=== PATIENT | male | born 1950 | race Caucasian/White ===

== ENCOUNTER 2017-08-23 14:03 | Emergency (ER) | payer MEDICARE, BC ==
[2017-08-23 14:23] VITALS: BP 99/80
--- NOTE | 2017-08-23 14:52 | UC ---
Shortness of Breath HPI - HPI Summary HPI Summary: Patient is ambulatory to room 4 with chief complaint today of shortness of breath/dyspnea on exertion. Patient also states he feels like his heart is beating irregularly. Patient denies chest pain denies syncope denies nausea denies sweating. - History of Current Complaint Chief Complaint: UCCardiac Stated Complaint: CHEST PAIN Time Seen by Provider: 08/23/17 14:26 Hx Obtained From: Patient Onset/Duration: Sudden Onset, Lasting Hours, Still Present Timing: Constant Current Severity: Moderate Dyspnea At: Rest Aggrevating Factors: Movement Alleviating Factors: Nothing - Allergy/Home Medications Allergies/Adverse Reactions: Allergies Allergy/AdvReac Type Severity Reaction Status Date / Time No Known Allergies Allergy Verified 08/23/17 14:52 PMH/Surg Hx/FS Hx/Imm Hx Previously Healthy: No - DVT RLE Cardiovascular History: Hypertension - Surgical History Surgical History: Unable to Obtain/Confirm - Family History Known Family History: Positive: None - Social History Occupation: Retired Lives: With Family Alcohol Use: None Substance Use Type: None Smoking Status (MU): Never Smoked Tobacco Review of Systems Constitutional: Negative Skin: Negative Eyes: Negative ENT: Negative Respiratory: Shortness Of Breath Cardiovascular: Palpitations Gastrointestinal: Negative Genitourinary: Negative Motor: Negative Neurovascular: Negative Musculoskeletal: Negative Neurological: Negative Psychological: Negative Is Patient Immunocompromised?: No All Other Systems Reviewed And Are Negative: Yes Physical Exam Triage Information Reviewed: Yes Appearance: Well-Appearing, No Pain Distress, Well-Nourished Vital Signs: Initial Vital Signs Temp 96.8 F 08/23/17 14:19 Pulse 25 08/23/17 14:19 Resp 18 08/23/17 14:19 BP 99/80 08/23/17 14:19 Pulse Ox 98 08/23/17 14:19 Vital Signs Reviewed: Yes Eye Exam: Normal Eyes: Positive: Conjunctiva Clear ENT Exam: Normal ENT: Positive: Normal ENT inspection, Hearing grossly normal. Negative: Muffled voice, Hoarse voice, Dental tenderness Dental Exam: Normal Neck exam: Normal - A green a regular heart rate and blood pressure came up to 140 99 is low as low as 60 oral Neck: Positive: Supple, Nontender Respiratory Exam: Normal Respiratory: Positive: Chest non-tender, Lungs clear, No respiratory distress, No accessory muscle use Cardiovascular Exam: Normal Cardiovascular: Positive: Pulses Normal, Brisk Capillary Refill, Bradycardia Musculoskeletal Exam: Normal Musculoskeletal: Positive: Strength Intact, ROM Intact, No Edema Neurological Exam: Normal Neurological: Positive: Alert, Muscle Tone Normal - Again is something that has been nauseated and U being around with continuing her up for A telemetry orders Y Y Psychological Exam: Normal Psychological: Positive: Normal Response To Family, Age Appropriate Behavior, Consolable Skin Exam: Normal Skin: Positive: rashes Diagnostics - EKG Cardiac Rate: Bradycardia Cardiac Rhythm: Sinus: Normal, LBBB: Normal, Other Rhythm: Normal - Second degre type 2 Ectopy: None ST Segment: Normal Re-Evaluation - Re-Evaluation First Eval Change: Unchanged - During assessment patient had 3 full screens of a atrial beats only,. external pacer pads applied but never turned on. After that patient converted back into a sinus rhythm in the 60s at rest patient had no shortness of breath and no chest pain he remained pink warm dry awake alert and oriented Shortness of Breath Dx - Course Course Of Treatment: EMS transferred to [facility] ER, IV 2,3 L O2 by nasal cannula transcutaneous pacemakers on skin on standby, EKG faxed and verbal report to [facility] ER - Differential Dx/Diagnosis Provider Diagnoses: Second degree type II heart block, shortness of breath, palpitations - Physician Notification/Consults Discussed Patient Care With: Chiara Rael Time Discussed With Above Provider: 14:25 Instructed by Provider To: Transfer Discharge - Sign-Out/Discharge Documenting (check all that apply): Discharge - Discharge Plan Condition: Guarded Disposition: TRANS [facility] CARE FAC Referrals: Radha Garcia MD [Primary Care Provider] - - Billing Disposition and Condition Condition: GUARDED Disposition: EMTALA
== END 2017-08-23 14:35 | disposition short-term general hospital (02) ==
LOC: UCEAST 14:03
DX: I44.1 Atrioventricular block, second degree (principal); R06.02 Shortness of breath; R00.2 Palpitations; I10 Essential (primary) hypertension; Z86.718 Personal history of other venous thrombosis and embolism
CPT/HCPCS: 99215; G0463

== ENCOUNTER 2017-08-23 14:44 | Inpatient (IN) | payer MEDICARE, BC ==
[2017-08-23] MEDS ORDERED: Dicyclomine CAP* 10 MG PO ONE (15:00)
[2017-08-23] MEDS ORDERED: Ondansetron INJ* 2 MG/ML VIAL IV ONE (15:00)
[2017-08-23 15:06] LABS: ABS Basophils 0 10^3/ul (0-0.2); ABS Eosinophils 0.1 10^3/ul (0-0.6); ABS Lymphocytes 2.1 10^3/ul (1.0-4.8); ABS Monocytes 0.5 10^3/ul (0-0.8); ABS Nucleated RBC 0 10^3/ul; Eosinophil % 2.6 % (0-6); Hematocrit 46 % (42-52); Hemoglobin 15.7 g/dl (14.0-18.0); Lymphocyte % 35.9 % (25-47); Mean Corpuscular HGB Conc 34 g/dl (31-36); Mean Corpuscular Hemoglobin 32 pg (27-31); Mean Corpuscular Volume 93 fL (80-94); Mean Platelet Volume 8.3 um3 (7.4-10.4); Nucleated Red Blood Cells % 0.1; Platelet Count 209 10^3/ul (150-450); Red Blood Count 4.97 10^6/ul (4.0-5.4); Red Cell Distribution Width 13 % (10.5-15); White Blood Count 5.7 10^3/ul (3.5-10.8)
[2017-08-23 15:22] LABS: EGFR Non-African American 60.2 (>60)
--- NOTE | 2017-08-23 15:43 | RAD ---
INDICATION: Heart block. COMPARISON: There are no prior studies available for comparison. TECHNIQUE: A portable view of the chest was obtained. FINDINGS: Cardiac and mediastinal contours appear to be within normal limits. There is a small area of increased density which projects over the left midlung likely due to overlapping shadows although nonspecific. The lungs are otherwise clear. No pleural effusion is seen. IMPRESSION: THERE IS A SMALL AREA OF INCREASED DENSITY WHICH PROJECTS OVER THE LEFT MID LUNG LIKELY DUE TO OVERLAPPING SHADOWS ALTHOUGH NONSPECIFIC. RECOMMEND PA AND LATERAL CHEST FILMS FOR FURTHER EVALUATION.
[2017-08-23 16:21] LABS: Urine Appearance Clear; Urine Blood 2+ (Negative); Urine Color Straw; Urine Ketones Negative (Negative); Urine Protein 1+(30 mg/dL) (Negative); Urine Specific Gravity 1.008 (1.010-1.030); Urine Urobilinogen Negative (Negative)
[2017-08-23] MEDS ORDERED: Acetaminophen TAB* 325 MG PO PRN (17:00)
[2017-08-23] MEDS ORDERED: LORazepam INJ* 2 MG/ML 1 ML VIAL ONE (17:13)
[2017-08-23] MEDS ORDERED: Morphine INJ* 2 MG/ML 1 ML CARPUJECT ONE (17:14)
[2017-08-23] MEDS ORDERED: Morphine INJ* 2 MG/ML 1 ML CARPUJECT IV ONE (17:15)
[2017-08-23] MEDS ORDERED: LORazepam INJ* 2 MG/ML 1 ML VIAL IV PUSH ONE (17:16)
[2017-08-23] MEDS ORDERED: Atropine SYRINGE* 0.1 MG/ML 10 ML SYRINGE (1 MG) ONE (17:26)
[2017-08-23] MEDS: cefTRIAXone(*) 2 GM in NS 0.9% 100 ML* 100 ML IVPB SCH (18:11)
[2017-08-23] MEDS ORDERED: Magnesium Sulfate 2 GM IV* 2 GM/50 ML BAG IVPB ONE (18:11)
[2017-08-23] MEDS ORDERED: Heparin 2 UNITS/ML IVPREMIX* 1,000 ML IV ONE (19:13)
[2017-08-23] MEDS ORDERED: Lidocaine 1% INJ* 10 MG/ML 30 ML SDV ONE (19:13)
--- NOTE | 2017-08-23 21:02 | HP ---
CC: Dr. Carroll; Dr. Apodaca; Dr. Muller * HISTORY AND PHYSICAL: DATE OF ADMISSION: 08/23/17 PRIMARY CARE PROVIDER: Dr. Carroll. MY ATTENDING PHYSICIAN WHILE IN THE HOSPITAL: Dr. Sydni Simon * (report dictated by Luis Manuel Rodriguez NP). CONSULTING GRASSLAND CONSERVATIONIST: Dr. Apodaca. CHIEF COMPLAINT: Bradycardia. HISTORY OF PRESENT ILLNESS: Mr. Shah is a 66-year-old male patient. He has a history of hypertension and kidney stones. He has had a question of DVT in the past related to after having a trauma. He fell of a scaffolding about 3 years ago. In addition to this, he also had a prolonged period prior to this of kneeling while gardening, ended up being on Lovenox bridged with Coumadin. He has a history of varicose veins in the left leg and he has a history of skin cancer; he thinks it was basal cell. He comes in to the ED today. He says he noticed yesterday, he was going up pushing a wheelbarrow up the hill, which he does pretty routinely because he is building a house and he only goes 800 feet and he does this without getting short of breath or any discomfort with breathing, but yesterday he felt very winded, and very tired, he felt like he could not do and he was having dyspnea on exertion, which he never experienced before. He woke up this morning and he noticed basically this afternoon that he was having again dyspnea on exertion. He tried walking down his sommers back and forth a couple of times and he got winded and he noticed that his heart was very slow, it would beat and then it would be quite some time before he feel another beat, and he felt that this was palpitation. He had no chest pressure, heaviness, discomfort, no pain, no burning, or epigastric discomfort. He says that he was concerned because of this and went to urgent care because it was convenient for him and close and they did one EKG and he was noted to be in a 4: 1 AV block and they sent him to the hospital. He had no episodes of fainting that he is aware of. He came in to the ED, was evaluated. He actually remained in the sinus rhythm with a right bundle branch block. While in the ER , just before transport, he went back into the rhythm again and actually had 2 episodes of syncope and at that point, a temporary pacemaker was initiated and ABC alert was called, but he had passed out for a second, and unfortunately CPR was initiated, but again he will need to require one compression and there was no quality strip of his during his syncopal episode, we have one where it looks like he is just in a complete heart block. He came back and Dr. Apodaca was emergently notified and Dr. Apodaca is coming in to place a transvenous pacer. He does state that he has been outside quite a lot, he has not noticed any tick bites, he has not noticed any rashes, but there is obviously concern because of the episodes of the bradycardia and the syncope, and we were asked to evaluate for admission. He denies any fevers, chills. No nausea or vomiting. No changes in medications. The only thing he takes is hydrochlorothiazide. PAST MEDICAL HISTORY: Significant for: 1. Hypertension. 2. Nephrolithiasis. 3. Question history of DVT. 4. Varicose veins. 5. History of skin cancer. PAST SURGICAL HISTORY: He has had lithotripsy and cystoscopy in the past. HOME MEDICATIONS: Include: 1. Aspirin 81 mg daily. 2. Hydrochlorothiazide 12.5 mg p.o. daily. ALLERGY TO MEDICATIONS: Include no known drug allergies. FAMILY HISTORY: His mother had an FL at 86. Father had history of cancer. SOCIAL HISTORY: He rarely drinks alcohol. He does not smoke. Denies any recreational drug use. He did smoke marijuana when he was in college. Surrogate decision maker is his , Renee. REVIEW OF SYSTEMS: There is no documented fever. He denied having any significant weight change. There was no double vision. He denies having any ear discharge. He denied having any rhinorrhea. There is no sore throat. No thyroid enlargement. He denied any chest pain. There is dyspnea on exertion. There is no abdominal pain. There was no nausea, no vomiting. No dysuria, no frequency. No seizure. There is loss of consciousness today while in the ER, but none prior and no seizure- like activity. Review of 14 systems was completed, all others are negative. PHYSICAL EXAMINATION GENERAL: At this time, Mr. Shah is a 66-year-old male patient. He appears to be well-nourished, well-developed. He does not appear to be in any acute distress. VITAL SIGNS: Blood pressure now 131/69, pulse 61, respirations were 12, O2 sat 99%, temperature 98.3. HEENT: Head: Atraumatic, normocephalic. Eyes: EOMs intact. Sclerae anicteric and not pale. Throat: Oral mucosa appears to be moist. No oropharyngeal erythema. NECK: Supple. LUNGS: Clear to auscultation. He had no wheezes, rales, or rhonchi. HEART: Sounds S1, S2. When I initially evaluated him, he was regular rate and rhythm and in normal sinus rhythm with a right bundle branch block. No murmurs , rubs, or gallops. ABDOMEN: Soft. It was flat, nontender. Bowel sounds are present. EXTREMITIES: Pulses were 2+ throughout. He is moving all 4 extremities with 5/ 5 strength. NEUROLOGICAL: He is awake, he is alert he is oriented x3. His tongue is midline. His curator of collections were equal. He had no gross focal deficits. SKIN: Intact. DIAGNOSTIC STUDIES/LAB DATA: Labs today, WBC of 5.7, RBC of 4.97, hemoglobin 15.7, hematocrit of 46, platelet count of 209. His PTT of 30.7. Sodium 137, potassium 2.9, chloride 98, bicarb 32, BUN 20, creatinine 1.20, glucose 157, lactate 1.7, calcium 9.2, mag 1.9. Total bili 0.9, AST 45, ALT 36, alk phos 58. His TSH was 2.6. His troponin was 0.01, repeat troponin is pending at this point. His CK was 89, CK-MB 2.5. Initial EKG at Urgent Care showed a 4:1 AV block. Repeat EKG when he arrived in to the emergency department shows sinus rhythm, rate of 65 with a right bundle branch block. There are no previous EKGs for comparison and when one he had a syncope episode, all I have is a tele-strip here which all it shows is P waves. It looks like a complete heart block with no QRS complexes prior to the syncopal episode. He did have a chest x-ray obtained today, which showed there is a small area of increased density, which projects over the left mid lung likely due to overlapping shadows, although nonspecific. I recommended PA and lateral films for further evaluation. Old medical records were reviewed. ASSESSMENT AND PLAN: Mr. Shah is a 66-year-old male patient coming in to the emergency department today with complaints again of palpitations, dyspnea on exertion, and not feeling well. He presents to the ER, was found to have 4:1 degree atrioventricular block and we were asked to evaluate for admission. He will be admitted under inpatient status for: 1. Atrioventricular block. Again, at this point, he has had a syncopal episode in the ED, ABC alert was called and after one compression, he did come back and was noted to be in the 4:1 atrioventricular block again. He was started on temporary pacing. Dr. Apodaca was emergently contacted again, saw him initially, Dr. Apodaca with the plan for him to see him tomorrow, but now a transvenous pacemaker is being placed. Lyme serology is pending. I am going to give him empirically Rocephin given his history of being outside. His electrolytes look stable. TSH is stable. He may need a permanent pacemaker. Cardiology is evaluating. We are cycling his troponins and I did order an echo for tomorrow. 2. Hypertension. At this point, I am holding on the hydrochlorothiazide. His blood pressure here is 124/79, it has been pretty stable. We can always restart this if needed, but in acute illness with this and him becoming hypotensive, having syncope, I am going to hold it. 3. History of deep venous thrombosis. He has been placed on heparin subcu. 4. History of nephrolithiasis. Not an active issue. 5. DVT prophylaxis. Again high risk, he will be placed on heparin subcu. 6. Code status. Full code. 7. Fluids, electrolytes, and nutrition. He can have a heart-healthy diet after the transvenous pacemaker is placed. TIME SPENT: On the admission was approximately 70 minutes of critical care time , greater than half the time was spent [id number] with the patient obtaining my history and physical, other half of the time was spent going over the plan of care with the patient and implementing the plan of care. I did discuss the plan of care with my attending, Dr. Simon; she is in agreement. I also did touch base with Dr. Muller. LUIS MANUEL RODRIGUEZ, LOOPER OPERATOR [id number]/[facility] [place]: [id number] [place]
--- NOTE | 2017-08-23 22:15 | CONS ---
CC: Dr. Carroll CARDIOLOGY CONSULTATION: DATE OF CONSULT: 08/23/17. REFERRING PHYSICIAN: Dr. Sydni Simon. REASON FOR CARDIOLOGY CONSULTATION: High-grade AV block with syncope. HISTORY OF PRESENT ILLNESS: I was kindly asked to see this patient for cardiology consultation by Dr. Simon of the hospitalist medicine service and Dr. Kumar of the emergency medicine service of [facility]. The patient apparently had some dyspnea on exertion yesterday while pushing a wheelbarrow. He did not feel well. He also noted some palpitations today and it is not clear if he truly had syncope or not as he noted his nose was sore while he was working on his computer and wonders if "I face planted?" In any case, he came to the [facility] and was found to have transient high-grade AV block with 4:1 block with ventricular escape rate of 23 beats per minute, which spontaneously resolved. He came to [facility] Emergency Room and his initial EKG here showed sinus rhythm at 65 beats per minute with baseline cardiac conduction disease with the right bundle- branch block and a left anterior fascicular block. While in the emergency room , the patient then had a 9-second high-grade AV block of essentially ventricular asystole with only non-conductive P-waves and he did have witnessed syncope with that and then spontaneous resolution. The patient himself denies chest pain. He has had some shortness of breath recently. He interestingly enough did not have symptoms during his EKG showing high-grade AV block at urgent care, but he was supine at that time. PAST MEDICAL HISTORY: Includes: 1. Medullary kidney disease, with calcium oxalate stones. 2. Hypertension. OUTPATIENT MEDICATIONS: 1. Hydrochlorothiazide 12.5 mg once a day. 2. Enteric-coated aspirin 81 mg per day. ALLERGIES TO MEDICATIONS: None. He denies shrimp, sea food, or dye allergy. FAMILY HISTORY: He states his mother from massive heart attack at the age of 86. His older brother of colon cancer. No family history of diabetes nor stroke. SOCIAL HISTORY: He does not smoke cigarettes, abuse alcohol, nor uses drugs. He is for 50 years (and his is present with him during this cardiology consultation). 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 He is very active with gardening and he is building his house. REVIEW OF SYSTEMS: He denies personal history of stroke, TIA. He has had skin cancer removed from his face. He has had a history of hemorrhoidal bleeding, but otherwise denies vomiting blood, coughing of blood, or bleeding stomach ulcers. He has a history of kidney stones related to his medullary kidney. He denies asthma, emphysema, pneumonia, tuberculosis, diagnosed sleep apnea nor home oxygen use. The patient's does note that the patient apparently does stop breathing for up to 10 seconds while sleeping. He denies diabetes. He does have hypertension. He denies prior OK, congestive heart failure, cardiac surgery, cardiac murmurs. He did have palpitations earlier today, but not prior. He denies psychiatric illnesses. He denies lupus, psoriasis, seizures, Parkinson's disease, myasthenia gravis, thyroid disorders, liver disorders, kidney disorders. He has had a prior DVT in 2013 requiring Coumadin, which occurred after he had fallen off of scaffolding and apparently had his leg bent under him for 8 hours while gardening. He denies peripheral edema. He has occasional GERD if he eats "specific pizza." All other review of systems are negative x14 systems except as described above. PHYSICAL EXAM: On general exam, he is a pleasant gentleman, who appears younger than his stated age, athletic appearing, in no acute distress. Pulse is currently 55 when he is not having high-grade AV block, blood pressure 123/74 , temperature 98.3 degrees Fahrenheit. HEENT: Shows the cranium is normocephalic, and atraumatic. He has moist mucosal membranes. Neck veins are not distended. There are no carotid bruits. Visible skin warm and perfused. Affect appropriate. He appears oriented. No significant kyphoscoliosis on back exam. Lungs are clear to auscultation. No wheezes. No rales. Cardiac Exam: S1, S2. Regular rate. No significant murmurs, rubs, or gallops. PMI is nondisplaced. Abdomen is soft, nondistended, appears benign. Extremities: Without significant edema. Pulses appear grossly intact. DIAGNOSTIC STUDIES/LAB DATA: A 12-lead EKG reviewed from urgent care today at 1404, which shows 4:1 AV block with a ventricular escape response of 23 beats per minute. There does appear to be some conduction from the P to QRS, when it does occur, so I pause on calling this third-degree AV block. Followup EKG completed today at 1453 at [facility] shows sinus rhythm at 65 beats per minute with a right bundle-branch block and left anterior fascicular block. Telemetry strip from our ER shows 9 seconds of non-conducted P waves with ventricular asystole White blood cell count 5.7, hematocrit 46, platelet count 209. Sodium 137, potassium 3.9, chloride 98, bicarb 32, BUN 20, creatinine 1.20 and his creatinine had been 1 on 03/09/13. Lactic acid 1.7. AST 45, ALT 36. Troponin 0.01, BNP 85. Followup troponin 0.02. TSH 2.60. IMPRESSION: Mr. Shah is a pleasant 66-year-old gentleman with a history of hypertension with baseline cardiac conduction disease, i.e., right bundle- branch block, and left anterior fascicular block of uncertain duration (the patient does not recall his last EKG), who has had symptomatic high-grade AV block here. I have discussed this in detail with patient and his . I am making the following recommendations with which the patient is in agreement. RECOMMENDATIONS: 1. Given his significant gardening history that does raise the question of Lyme carditis, so we will rule that out. 2. Given that he is having accelerating episodes of symptomatic high-grade AV block, we will place a temporary pacer wire tonight. If Lyme carditis is ruled out, then plan for permanent pacemaker especially given the patient's baseline cardiac conduction disease likely related to his history of hypertension. 3. We recommend repletion of K greater 4, magnesium greater than 2. 4. I would recommend rule out obstructive sleep apnea as an outpatient given suggestive history. 5. Regarding his shortness of breath which may have been related to his high grade AV block, would exclude CAD with ischemic evaluation as an outpatient.We will check a baseline echocardiogram while he is hospitalized. 6. Other management as per the Hospitalist Medicine service and I have discussed the case with Dr. Neslon and Mr. Rodriguez, PACKING AND WRAPPING SUPERVISOR of . Dear Dr. Sydni Simon, many thanks for asking me to participate in the cardiovascular consultative care of Mr. Shah. Please do not hesitate to contact me if you have any questions or concerns regarding the patient's cardiovascular consultative care. [id number]/[facility] #: [id number] [facility] HOSPITALJames
[2017-08-23] MEDS: Heparin VIAL(*) 5000 UNITS/ML VIAL (FIVE THOUSAND) SUBCUT SCH (22:21)
--- NOTE | 2017-08-24 01:40 | CATH ---
CC: Dr. Carroll; Dr. Apodaca PROCEDURE NOTE: DATE OF PROCEDURE: 08/23/17 PRIMARY CARE PHYSICIAN: Dr. Carroll. ORCHARD WORKER: Dr. Apodaca. PROCEDURE: Temporary pacemaker placement. HISTORY: A 66-year-old male with bifascicular block admitted with recurring lightheadedness and witnessed syncope with a prolonged episode of AV block. Temporary pacemaker is required pending permanent pacemaker implantation. PROCEDURE ACCESS: Right common femoral vein sheath 5F. A bipolar 5-Polish pacing wire was positioned in the RV apex using fluoroscopy. Threshold was less than 0.5 MA, it was set at 5 MA, demand, rate of 50. There were no complications. Sheath and pacing wire were secured. The patient was transferred back to the ICU. There were no complications. [id number]/[facility] #: [id number] MTDD
[2017-08-24] MEDS: Heparin VIAL(*) 5000 UNITS/ML VIAL (FIVE THOUSAND) SUBCUT SCH ×3 (06:20→22:15)
[2017-08-24 06:48] LABS: INR 0.93 (0.77-1.02)
[2017-08-24 06:58] LABS: ABS Basophils 0 10^3/ul (0-0.2); ABS Eosinophils 0.1 10^3/ul (0-0.6); ABS Lymphocytes 1.2 10^3/ul (1.0-4.8); ABS Monocytes 0.5 10^3/ul (0-0.8); ABS Neutrophils 4.6 10^3/ul (1.5-7.7); ABS Nucleated RBC 0 10^3/ul; EGFR Non-African American 66.6 (>60); Eosinophil % 1.5 % (0-6); Hematocrit 42 % (42-52); Hemoglobin 14.5 g/dl (14.0-18.0); Lymphocyte % 18.7 % (25-47); Mean Corpuscular HGB Conc 35 g/dl (31-36); Mean Corpuscular Hemoglobin 32 pg (27-31); Mean Corpuscular Volume 92 fL (80-94); Mean Platelet Volume 8.6 um3 (7.4-10.4); Nucleated Red Blood Cells % 0.1; Platelet Count 178 10^3/ul (150-450); Red Blood Count 4.58 10^6/ul (4.0-5.4); Red Cell Distribution Width 13 % (10.5-15); White Blood Count 6.3 10^3/ul (3.5-10.8)
[2017-08-24] MEDS: Aspirin EC TAB* 81 MG TAB.EC PO SCH (09:11)
--- NOTE | 2017-08-24 09:46 | PN ---
Subjective Date of Service: 08/24/17 Interval History: Pt feels well. Temporary pacer spikes sen on telem from time to time. No CP/SOB Objective Active Medications: Acetaminophen (Tylenol Tab*) 650 mg PO Q4H PRN PRN Reason: FEVER/PAIN Aspirin (Aspirin Ec Tab*) 81 mg PO DAILY [facility] Last Admin: 08/24/17 09:11 Dose: 81 mg Heparin Sodium (Porcine) (Heparin Vial(*)) 5,000 units SUBCUT Q8HR [facility] Last Admin: 08/24/17 06:20 Dose: 5,000 units Ceftriaxone Sodium 2 gm/ (Sodium Chloride) 100 mls @ 200 mls/hr IVPB Q24H [facility] Last Admin: 08/23/17 18:11 Dose: 200 mls/hr Vital Signs - 8 hr 08/24/17 08/24/17 08/24/17 02:00 02:03 03:00 Temperature Pulse Rate 55 50 50 Respiratory 15 16 14 Rate Blood Pressure 79/64 128/63 93/77 (mmHg) O2 Sat by Pulse 97 97 97 Oximetry 08/24/17 08/24/17 08/24/17 04:00 04:01 05:00 Temperature 99.2 F 99.3 F Pulse Rate 50 50 51 Respiratory 10 9 13 Rate Blood Pressure 82/68 (mmHg) O2 Sat by Pulse 98 97 95 Oximetry 08/24/17 08/24/17 08/24/17 05:01 06:00 06:01 Temperature Pulse Rate 51 50 50 Respiratory 13 12 8 Rate Blood Pressure 112/62 111/66 (mmHg) O2 Sat by Pulse 97 98 95 Oximetry 08/24/17 08/24/17 08/24/17 07:00 07:23 07:27 Temperature 98.3 F Pulse Rate 52 Respiratory 13 14 Rate Blood Pressure 112/70 (mmHg) O2 Sat by Pulse 99 Oximetry 08/24/17 08/24/17 08/24/17 08:00 08:01 09:00 Temperature 98.3 F Pulse Rate 56 56 61 Respiratory 22 10 21 Rate Blood Pressure 132/71 (mmHg) O2 Sat by Pulse 98 99 99 Oximetry 08/24/17 09:01 Temperature Pulse Rate 61 Respiratory 18 Rate Blood Pressure 116/71 (mmHg) O2 Sat by Pulse 98 Oximetry Oxygen Devices in Use Now: None Appearance: 66 yo M in nAD, aAOx3 Eyes: No Scleral Icterus, PERRLA Ears/Nose/Mouth/Throat: NL Teeth, Lips, Gums, Mucous Membranes Moist Neck: NL Appearance and Movements; NL JVP, Trachea Midline Respiratory: Symmetrical Chest Expansion and Respiratory Effort, Clear to Auscultation Cardiovascular: NL Sounds; No Murmurs; No JVD, RRR Abdominal: NL Sounds; No Tenderness; No Distention, No Hepatosplenomegaly Lymphatic: No Cervical Adenopathy Extremities: No Edema, No Clubbing, Cyanosis, - - temp pacer site in R groin - no hematoma noted Skin: No Rash or Ulcers, No Nodules or Sclerosis Neurological: Alert and Oriented x 3, NL Muscle Strength and Tone Result Diagrams: 08/24/17 06:20 08/24/17 06:20 Microbiology and Other Data: Microbiology 08/23/17 17:45 Nasal Screen MRSA (PCR)(IRA) - Final Nasal Mrsa Not Detected Assess/Plan/Problems-Billing Assessment: 66 yo M with h/o HTN presents with SSS - Patient Problems (1) Sick sinus syndrome Comment: Pt is planned for permament pacer in AM on Friday.For now continue temp pacer in ICU. due to high suspicion of Lyme carditis, will continue empiric Cefriaxone. Lyme serology pending (2) HTN (hypertension) Comment: normotensive, HCTZ held (3) DVT prophylaxis Comment: HSQ-holding tonight for possible pacer in aM
[2017-08-24] MEDS ORDERED: Potassium Chlor TAB* 20 MEQ TAB.ER PO ONE (10:03)
--- NOTE | 2017-08-24 11:51 | ECHO ---
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 Completed at 1130. Left Ventricle: The left ventricular chamber size is normal. Mild concentric left ventricular hypertrophy is observed. Global left ventricular wall motion and contractility are within normal limits. There is normal left ventricular systolic function. The estimated ejection fraction is 55-60%. Normal left ventricular diastolic filling is observed. Left Atrium: The left atrial chamber size is normal. Right Ventricle: The right ventricular chamber size and systolic function are within normal limits. A pacemaker wire is visualized in the right ventricle. Right Atrium: The right atrium is mildly dilated. Aortic Valve: The aortic valve is trileaflet. The aortic valve leaflets are mildly thickened. There is no evidence of aortic regurgitation. There is no evidence of aortic stenosis. Mitral Valve: The mitral valve leaflets are mildly thickened. There is a trace of mitral regurgitation. Tricuspid Valve: The tricuspid valve leaflets are normal. There is trace tricuspid regurgitation. No pulmonary hypertension is noted. Pulmonic Valve: The pulmonic valve appears normal. There is a trace pulmonic regurgitation. There is no pulmonic stenosis. Pericardium: There is no significant pericardial effusion. Aorta: There is mild dilatation of the ascending aorta. There is no dilatation of the aortic arch. There is no dilation of the aortic root. Pulmonary Artery: The main pulmonary artery is not well visualized. Venous: The inferior vena cava appears normal in size. There is a greater than 50% respiratory change in the inferior vena cava dimension. Conclusions There is normal left ventricular systolic function. The estimated ejection fraction is 55-60%. Global left ventricular wall motion and contractility are within normal limits. Mild concentric left ventricular hypertrophy is observed. The left ventricular chamber size is normal. The right atrium is mildly dilated. Functionally benign heart valves. There is mild dilatation of the ascending aorta. There is no prior echocardiogram available to compare with at this time. Measurements Name Value Normal Range RVDdMajor (2D) 2.8 cm (2.2 - 4.4) RAd ISD 4CH 5.1 cm (3.4 - 4.9) RA (A4C)W 3.5 cm (2.9 - 4.6) IVSd (2D) 1.3 cm (0.6 - 1) LVPWd (2D) 1.2 cm (0.6 - 1) LVIDd (2D) 4.2 cm (3.6 - 5.4) LVIDs (2D) 2.7 cm - LV FS (2D) 36 % (25 - 45) Aortic Annulus 2 cm (1.4 - 2.6) Ao root diameter (2D) 3.2 cm (2.1 - 3.5) Ascending Ao 3.7 cm (2.1 - 3.4) Aortic arch 2.7 cm (1.8 - 3.4) LA dimension (AP) 2D 3.3 cm (2.3 - 3.8) LAd ISD 4CH 5.1 cm (2.9 - 5.3) LA ISD 4CH W 4.3 cm (2.5 - 4.5) Name Value Normal Range LA ESV SP 4CH (A/L) 67 ml - LA ESV SP 2CH (A/L) 27 ml - LA ESV BP (A/L) 45 ml - LA ESV BP (A/L) index 22.7 ml/m2 - LA ESV SP 4CH (MOD) 64 ml - LA ESV SP 2CH (MOD) 26 ml - Name Value Normal Range MV E-wave Vmax 0.9 m/sec - MV deceleration time 233 msec - MV A-wave Vmax 0.78 m/sec - MV E:A ratio 1.1 ratio - LV septal e' Vmax 0.1 m/sec - LV lateral e' Vmax 0.09 m/sec - LV E:e' septal ratio 9 ratio - LV E:e' lateral ratio 10 ratio - Name Value Normal Range AV Vmax 1.5 m/sec - AV VTI 34.9 cm - AV peak gradient 8.9 mmHg - AV mean gradient 5.3 mmHg - LVOT Vmax 1.3 m/sec - LVOT VTI 28.2 cm - LVOT peak gradient 6.5 mmHg - LVOT mean gradient 3.6 mmHg - MILENA Vmax 0.68 m/sec - Name Value Normal Range TR Vmax 2.4 m/sec - TR peak gradient 23 mmHg - RAP 3 mmHg - RVSP 26 mmHg - IVC diameter 1.5 cm - Name Value Normal Range PV Vmax 0.87 m/sec -
[2017-08-24] MEDS: cefTRIAXone(*) 2 GM in NS 0.9% 100 ML* 100 ML IVPB SCH (18:29)
[2017-08-25 06:38] LABS: ABS Basophils 0 10^3/ul (0-0.2); ABS Eosinophils 0.2 10^3/ul (0-0.6); ABS Lymphocytes 1.5 10^3/ul (1.0-4.8); ABS Monocytes 0.4 10^3/ul (0-0.8); ABS Neutrophils 2.9 10^3/ul (1.5-7.7); ABS Nucleated RBC 0 10^3/ul; Eosinophil % 3.1 % (0-6); Hematocrit 41 % (42-52); Hemoglobin 14.1 g/dl (14.0-18.0); Lymphocyte % 30.3 % (25-47); Mean Corpuscular HGB Conc 34 g/dl (31-36); Mean Corpuscular Hemoglobin 32 pg (27-31); Mean Corpuscular Volume 92 fL (80-94); Mean Platelet Volume 8.2 um3 (7.4-10.4); Nucleated Red Blood Cells % 0; Platelet Count 161 10^3/ul (150-450); Red Blood Count 4.47 10^6/ul (4.0-5.4); Red Cell Distribution Width 13 % (10.5-15)
[2017-08-25 06:54] LABS: EGFR Non-African American 70.2 (>60)
--- NOTE | 2017-08-25 07:55 | PN ---
Subjective Date of Service: 08/25/17 Interval History: No c/o. Objective Active Medications: Acetaminophen (Tylenol Tab*) 650 mg PO Q4H PRN PRN Reason: FEVER/PAIN Aspirin (Aspirin Ec Tab*) 81 mg PO DAILY [facility] Last Admin: 08/24/17 09:11 Dose: 81 mg Ceftriaxone Sodium 2 gm/ (Sodium Chloride) 100 mls @ 200 mls/hr IVPB Q24H [facility] Last Admin: 08/24/17 18:29 Dose: 200 mls/hr Vital Signs - 8 hr 08/25/17 08/25/17 08/25/17 00:00 00:01 01:00 Temperature 98.4 F 98.3 F Pulse Rate 56 51 52 Respiratory 18 15 14 Rate Blood Pressure 124/67 117/68 (mmHg) O2 Sat by Pulse 97 96 96 Oximetry 08/25/17 08/25/17 08/25/17 01:01 02:00 02:01 Temperature Pulse Rate 57 53 52 Respiratory 26 11 9 Rate Blood Pressure 114/64 (mmHg) O2 Sat by Pulse 96 97 96 Oximetry 08/25/17 08/25/17 08/25/17 03:00 03:01 04:00 Temperature 98.4 F Pulse Rate 51 52 53 Respiratory 16 12 14 Rate Blood Pressure 119/72 123/67 (mmHg) O2 Sat by Pulse 96 96 95 Oximetry 08/25/17 08/25/17 08/25/17 04:01 05:00 06:00 Temperature Pulse Rate 51 53 51 Respiratory 12 15 9 Rate Blood Pressure 92/57 108/69 (mmHg) O2 Sat by Pulse 95 97 96 Oximetry 08/25/17 08/25/17 06:01 07:40 Temperature 98.7 F Pulse Rate 51 Respiratory 8 Rate Blood Pressure (mmHg) O2 Sat by Pulse 95 Oximetry Oxygen Devices in Use Now: None Appearance: Alert, partly up in ICU bed. In good spirits, looks comfortable Eyes: No Scleral Icterus Respiratory: Symmetrical Chest Expansion and Respiratory Effort, Clear to Auscultation, Clear to Percussion Cardiovascular: NL Sounds; No Murmurs; No JVD, RRR, No Edema, - Skin: No Rash or Ulcers, No Nodules or Sclerosis, - Result Diagrams: 08/25/17 06:17 08/25/17 06:17 Microbiology and Other Data: Microbiology 04/07/18 17:45 Nasal Screen MRSA (PCR)(IRA) - Final Nasal Mrsa Not Detected Assess/Plan/Problems-Billing Assessment: 66 yo M with h/o HTN presents with SSS - Patient Problems (1) Heart block Current Visit: Yes Status: Acute Code(s): I45.9 - CONDUCTION DISORDER, UNSPECIFIED SNOMED Code(s): 853606565 Comment: Temporary pacer in place, set at 50. TSH wnl. Lyme serology pending. Discussed with Dr. Moctezuma. (2) HTN (hypertension) Current Visit: Yes Status: Acute Code(s): I10 - ESSENTIAL (PRIMARY) HYPERTENSION SNOMED Code(s): 72600248 Comment: normotensive, HCTZ held (3) DVT prophylaxis Current Visit: Yes Status: Acute Code(s): BRP3497 - SNOMED Code(s): 041552472 Comment: HSQ-holding tonight for possible pacer.
[2017-08-25] MEDS: Aspirin EC TAB* 81 MG TAB.EC PO SCH (08:52)
[2017-08-25 11:23] LABS: ABS Basophils 0 10^3/ul (0-0.2); ABS Eosinophils 0.1 10^3/ul (0-0.6); ABS Lymphocytes 1.1 10^3/ul (1.0-4.8); ABS Monocytes 0.3 10^3/ul (0-0.8); ABS Nucleated RBC 0 10^3/ul; Eosinophil % 2.3 % (0-6); Hematocrit 43 % (42-52); Hemoglobin 14.7 g/dl (14.0-18.0); Lymphocyte % 23.5 % (25-47); Mean Corpuscular HGB Conc 34 g/dl (31-36); Mean Corpuscular Hemoglobin 32 pg (27-31); Mean Corpuscular Volume 92 fL (80-94); Mean Platelet Volume 8.3 um3 (7.4-10.4); Nucleated Red Blood Cells % 0.1; Platelet Count 170 10^3/ul (150-450); Red Blood Count 4.66 10^6/ul (4.0-5.4); Red Cell Distribution Width 13 % (10.5-15); White Blood Count 4.6 10^3/ul (3.5-10.8)
[2017-08-25 11:47] LABS: INR 0.93 (0.77-1.02)
--- NOTE | 2017-08-25 12:52 | ED ---
Ravinder Cordova Stephanie, scribed for Heron Kumar MD on 08/23/17 at 1507 . Shortness of Breath - HPI Summary HPI Summary: The patient is a 66 y/o M presenting to the ED with c/o SOB that began today at 12:00. Symptoms include palpitations and lightheadedness. He denies CP and denies current SOB. The patient states he was at rest when he began to experience SOB. The patient states this morning he noticed he had an irregular heartbeat. The patient states he attempted to walk but he became SOB after slight ambulation. He states he is in generally good shape. 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 - History of Current Complaint Time Seen by Provider: 08/23/17 14:55 Hx Obtained From: Patient Onset/Duration: Sudden Onset, Resolved Timing: Intermittent Episodes Lasting: Current Severity: None Dyspnea At: Rest Aggrevating Factors: Nothing Alleviating Factors: Nothing - Allergy/Home Medications Allergies/Adverse Reactions: Allergies Allergy/AdvReac Type Severity Reaction Status Date / Time No Known Allergies Allergy Verified 08/23/17 14:52 Home Medications: Home Medications Aspirin EC TAB* [Ecotrin EC Low Dose 81 MG*] 81 mg PO DAILY 08/23/17 [History Confirmed 08/23/17] Hydrochlorothiazide TAB* [Hydrodiuril TAB*] 12.5 mg PO DAILY 08/23/17 [History Confirmed 08/23/17] PMH/Surg Hx/FS Hx/Imm Hx Cardiovascular History: Reports: Hx Deep Vein Thrombosis Sensory History: Denies: Hx Legally Blind EENT History: Denies: Hx Deafness - Surgical History Surgery Procedure, Year, and Place: kidney stone removal Infectious Disease History: No Infectious Disease History: Denies: Traveled Outside the [place] in Last 30 Days - Family History Known Family History: Positive: Cardiac Disease - [place]- mother, Other - esophageal cancer-father - Social History Occupation: Employed Part-time Lives: With Family Alcohol Use: None Hx Substance Use: No Substance Use Type: Reports: None Hx Tobacco Use: No Smoking Status (MU): Never Smoked Tobacco Have You Smoked in the Last Year: No Review of Systems Negative: Fever Positive: Palpitations. Negative: Chest Pain Positive: Shortness Of Breath Neurological: Other - lightheadedness All Other Systems Reviewed And Are Negative: Yes Physical Exam - Summary Physical Exam Summary: VITAL SIGNS: Reviewed. GENERAL: Patient is a well-developed and nourished MALE who is lying comfortable in the stretcher. Patient is not in any acute respiratory distress. HEAD AND FACE: No signs of trauma. No ecchymosis, hematomas or skull depressions. No sinus tenderness. EYES: PERRLA, EOMI x 2, No injected conjunctiva, no nystagmus. EARS: Hearing grossly intact. Ear canals and tympanic membranes are within normal limits. MOUTH: Oropharynx within normal limits. NECK: Supple, trachea is midline, no adenopathy, no JVD, no carotid bruit, no c- spine tenderness, neck with full ROM. CHEST: Symmetric, no tenderness at palpation LUNGS: Clear to auscultation bilaterally. No wheezing or crackles. CVS: Regular rate and rhythm, S1 and S2 present, no murmurs or gallops appreciated. ABDOMEN: Soft, non-tender. No signs of distention. No rebound no guarding, and no masses palpated. Bowel sounds are normal. EXTREMITIES: FROM in all major joints, no edema, no cyanosis or clubbing. NEURO: Alert and oriented x 3. No acute neurological deficits. Speech is normal and follows commands. SKIN: Dry and warm Triage Information Reviewed: Yes Vital Signs On Initial Exam: Initial Vitals Temp Pulse Resp BP Pulse Ox 98.0 F 66 22 131/50 100 08/23/17 14:49 08/23/17 14:49 08/23/17 14:49 08/23/17 14:49 08/23/17 14:49 Vital Signs Reviewed: Yes Diagnostics - Vital Signs Vital Signs Temp Pulse Resp BP Pulse Ox 08/23/17 14:49 98.0 F 66 22 131/50 100 - Laboratory Lab Results: Lab Results 08/23/17 08/23/17 08/23/17 Range/Units 13:40 13:40 13:40 WBC 5.7 (3.5-10.8) 10^3/ul RBC 4.97 (4.0-5.4) 10^6/ul Hgb 15.7 (14.0-18.0) g/dl Hct 46 (42-52) % MCV 93 (80-94) fL MCH 32 H (27-31) pg MCHC 34 (31-36) g/dl RDW 13 (10.5-15) % Plt Count 209 (150-450) 10^3/ul MPV 8.3 (7.4-10.4) um3 Neut % (Auto) 52.4 (38-83) % Lymph % (Auto) 35.9 (25-47) % [place] % (Auto) 8.7 H (0-7) % Eos % (Auto) 2.6 (0-6) % Baso % (Auto) 0.4 (0-2) % Absolute Neuts (auto) 3.0 (1.5-7.7) 10^3/ul Absolute Lymphs (auto) 2.1 (1.0-4.8) 10^3/ul Absolute Monos (auto) 0.5 (0-0.8) 10^3/ul Absolute Eos (auto) 0.1 (0-0.6) 10^3/ul Absolute Basos (auto) 0 (0-0.2) 10^3/ul Absolute Nucleated RBC 0 10^3/ul Nucleated RBC % 0.1 APTT (26.0-36.3) seconds Sodium 137 L (139-145) mmol/L Potassium 3.9 (3.5-5.0) mmol/L Chloride 98 L (101-111) mmol/L Carbon Dioxide 32 (22-32) mmol/L Anion Gap 7 (2-11) mmol/L BUN 20 (6-24) mg/dL Creatinine 1.20 H (0.67-1.17) mg/dL Est GFR ( Amer) 77.4 (>60) Est GFR (Non-Af Amer) 60.2 (>60) BUN/Creatinine Ratio 16.7 (8-20) Glucose 157 H (70-100) mg/dL Lactic Acid (0.5-2.0) mmol/L Calcium 9.2 (8.6-10.3) mg/dL Magnesium 1.9 (1.9-2.7) mg/dL Total Bilirubin 0.90 (0.2-1.0) mg/dL AST 45 H (13-39) U/L ALT 36 (7-52) U/L Alkaline Phosphatase 58 (34-104) U/L Total Creatine Kinase 89 (10-223) U/L CK-MB (CK-2) 2.5 (0.6-6.3) ng/mL Myoglobin 47.6 (17.4-105.7) ng/mL Troponin I 0.01 (<0.04) ng/mL B-Natriuretic Peptide 85 ( - 100) pg/mL Total Protein 7.1 (6.4-8.9) g/dL Albumin 4.1 (3.2-5.2) g/dL Globulin 3.0 (2-4) g/dL Albumin/Globulin Ratio 1.4 (1-3) TSH 2.60 (0.34-5.60) mcIU/mL Urine Color Urine Appearance Urine pH (5-9) Ur Specific [place] (1.010-1.030) Urine Protein (Negative) Urine Ketones (Negative) Urine Blood (Negative) Urine Nitrate (Negative) Urine Bilirubin (Negative) Urine Urobilinogen (Negative) Ur Leukocyte Esterase (Negative) Urine WBC (Auto) (Absent) Urine RBC (Auto) (Absent) Ur Squamous Epith Cells (Absent) Urine Bacteria (Absent) Hyaline Casts (Absent) Urine Glucose (Negative) 08/23/17 08/23/17 08/23/17 Range/Units 13:40 15:22 16:02 WBC (3.5-10.8) 10^3/ul RBC (4.0-5.4) 10^6/ul Hgb (14.0-18.0) g/dl Hct (42-52) % MCV (80-94) fL MCH (27-31) pg MCHC (31-36) g/dl RDW (10.5-15) % Plt Count (150-450) 10^3/ul MPV (7.4-10.4) um3 Neut % (Auto) (38-83) % Lymph % (Auto) (25-47) % [place] % (Auto) (0-7) % Eos % (Auto) (0-6) % Baso % (Auto) (0-2) % Absolute Neuts (auto) (1.5-7.7) 10^3/ul Absolute Lymphs (auto) (1.0-4.8) 10^3/ul Absolute Monos (auto) (0-0.8) 10^3/ul Absolute Eos (auto) (0-0.6) 10^3/ul Absolute Basos (auto) (0-0.2) 10^3/ul Absolute Nucleated RBC 10^3/ul Nucleated RBC % APTT 30.7 (26.0-36.3) seconds Sodium (139-145) mmol/L Potassium (3.5-5.0) mmol/L Chloride (101-111) mmol/L Carbon Dioxide (22-32) mmol/L Anion Gap (2-11) mmol/L BUN (6-24) mg/dL Creatinine (0.67-1.17) mg/dL Est GFR ( Amer) (>60) Est GFR (Non-Af Amer) (>60) BUN/Creatinine Ratio (8-20) Glucose (70-100) mg/dL Lactic Acid 1.7 (0.5-2.0) mmol/L Calcium (8.6-10.3) mg/dL Magnesium (1.9-2.7) mg/dL Total Bilirubin (0.2-1.0) mg/dL AST (13-39) U/L ALT (7-52) U/L Alkaline Phosphatase (34-104) U/L Total Creatine Kinase (10-223) U/L CK-MB (CK-2) (0.6-6.3) ng/mL Myoglobin (17.4-105.7) ng/mL Troponin I (<0.04) ng/mL B-Natriuretic Peptide ( - 100) pg/mL Total Protein (6.4-8.9) g/dL Albumin (3.2-5.2) g/dL Globulin (2-4) g/dL Albumin/Globulin Ratio (1-3) TSH (0.34-5.60) mcIU/mL Urine Color Straw Urine Appearance Clear Urine pH 7.0 (5-9) Ur Specific [place] 1.008 L (1.010-1.030) Urine Protein 1+(30 mg/dl) A (Negative) Urine Ketones Negative (Negative) Urine Blood 2+ A (Negative) Urine Nitrate Negative (Negative) Urine Bilirubin Negative (Negative) Urine Urobilinogen Negative (Negative) Ur Leukocyte Esterase Negative (Negative) Urine WBC (Auto) Trace(0-5/hpf) (Absent) Urine RBC (Auto) Absent (Absent) Ur Squamous Epith Cells Present A (Absent) Urine Bacteria Absent (Absent) Hyaline Casts Present A (Absent) Urine Glucose Negative (Negative) Result Diagrams: 08/25/17 11:06 08/25/17 11:06 Lab Statement: Any lab studies that have been ordered have been reviewed, and results considered in the medical decision making process. - Radiology CXR Xray Interpretation: No Acute Changes Radiology Interpretation Completed By: Radiologist - THERE IS A SMALL AREA OF INCREASED DENSITY WHICH PROJECTS OVER THE LEFT MID-LUNG LIKELY DUE TO OVERLAPPING SHADOWS ALTHOUGH NONSPECIFIC. RECOMMEND PA AND LATERAL CHEST FILMS FOR FURTHER EVALUATION. ED physician has reviewed this report. - EKG 14:53 Cardiac Rate: NL EKG Rhythm: Sinus Rhythm - 65 BPM EKG Interpretation: RBBB, no ST elevations Re-Evaluation - Re-Evaluation First Eval Re-Evaluation Time: 15:44 Change: Unchanged - ED physician discussed the plan of admission with the patient. The pt agrees with the plan of admission into the hospital. Course/Dx - Course Assessment/Plan: The patient is a 66 y/o M presenting to the ED with c/o SOB that began today at 12:00. Symptoms include palpitations and lightheadedness. He denies CP and denies current SOB. The patient states this morning he noticed he had an irregular heartbeat. The patient states he attempted to walk but he became SOB after slight ambulation. He states he is in generally good shape. 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 Bloodwork is without significant abnormalities. Dr. Apodaca's interpretation of the patient's EKG is a high grade AV block. In the ED course, the patient was given bentyl and zofran. The pt is hemodynamically stable, alert and oriented x3. At 15:44, ED physician spoke to Dr. Simon who :agreed to admit the patient. ABC alert at 17:09. At 17:15, ED physician speaks to Dr. Apodaca who says he will meet the pt in the ED. - Diagnoses Provider Diagnoses: High-grade atrioventricular block - Physician Notifications Discussed Care of Patient With: Brock Apodaca - Interpretation of EKG: high grade AV block. Time Discussed With Above Provider: 15:24 Instructed by Provider To: MD Will See In ED - Critical Care Time Critical Care Time: 75-104 min Discharge - Sign-Out/Discharge Documenting (check all that apply): Discharge - Discharge Plan Condition: Stable Disposition: ADMITTED TO [facility] - Billing Disposition and Condition Condition: STABLE Disposition: [facility] The documentation as recorded by the Ravinder camarena Stephanie accurately reflects the service I personally performed and the decisions made by , Heron Kumar MD.
[2017-08-25] MEDS: Heparin VIAL(*) 5000 UNITS/ML VIAL (FIVE THOUSAND) SUBCUT SCH ×2 (14:49→21:46)
[2017-08-25] MEDS: cefTRIAXone(*) 2 GM in NS 0.9% 100 ML* 100 ML IVPB SCH (18:07)
[2017-08-26] MEDS: Heparin VIAL(*) 5000 UNITS/ML VIAL (FIVE THOUSAND) SUBCUT SCH ×3 (06:11→22:29)
[2017-08-26 06:21] LABS: ABS Basophils 0 10^3/ul (0-0.2); ABS Eosinophils 0.2 10^3/ul (0-0.6); ABS Lymphocytes 1.5 10^3/ul (1.0-4.8); ABS Monocytes 0.4 10^3/ul (0-0.8); ABS Nucleated RBC 0 10^3/ul; Eosinophil % 3.6 % (0-6); Hematocrit 42 % (42-52); Hemoglobin 14.4 g/dl (14.0-18.0); Lymphocyte % 29.2 % (25-47); Mean Corpuscular HGB Conc 34 g/dl (31-36); Mean Corpuscular Hemoglobin 31 pg (27-31); Mean Corpuscular Volume 93 fL (80-94); Nucleated Red Blood Cells % 0; Platelet Count 161 10^3/ul (150-450); Red Blood Count 4.58 10^6/ul (4.0-5.4); Red Cell Distribution Width 13 % (10.5-15); White Blood Count 5.1 10^3/ul (3.5-10.8)
--- NOTE | 2017-08-26 07:47 | PN ---
Subjective Date of Service: 08/26/17 Interval History: No c/o. Objective Active Medications: Acetaminophen (Tylenol Tab*) 650 mg PO Q4H PRN PRN Reason: FEVER/PAIN Aspirin (Aspirin Ec Tab*) 81 mg PO DAILY [facility] Last Admin: 08/25/17 08:52 Dose: 81 mg Heparin Sodium (Porcine) (Heparin Vial(*)) 5,000 units SUBCUT Q8HR [facility] Last Admin: 08/26/17 06:11 Dose: 5,000 units Ceftriaxone Sodium 2 gm/ (Sodium Chloride) 100 mls @ 200 mls/hr IVPB Q24H [facility] Last Admin: 08/25/17 18:07 Dose: 200 mls/hr Vital Signs - 8 hr 08/25/17 08/26/17 08/26/17 23:47 00:00 00:01 Temperature 98.3 F Pulse Rate 48 47 Respiratory 12 19 Rate Blood Pressure 120/66 (mmHg) O2 Sat by Pulse 95 95 Oximetry 08/26/17 08/26/17 08/26/17 01:00 01:01 02:00 Temperature Pulse Rate 50 54 51 Respiratory 13 22 12 Rate Blood Pressure 126/69 120/75 (mmHg) O2 Sat by Pulse 97 94 92 Oximetry 08/26/17 08/26/17 08/26/17 02:01 03:00 03:01 Temperature Pulse Rate 51 49 49 Respiratory 15 12 12 Rate Blood Pressure 120/69 (mmHg) O2 Sat by Pulse 94 94 Oximetry 08/26/17 08/26/17 08/26/17 04:00 04:01 05:00 Temperature 98.4 F Pulse Rate 46 47 49 Respiratory 12 10 10 Rate Blood Pressure 121/72 119/77 (mmHg) O2 Sat by Pulse 97 97 95 Oximetry 08/26/17 08/26/17 08/26/17 05:01 06:00 06:01 Temperature Pulse Rate 50 51 53 Respiratory 14 13 18 Rate Blood Pressure 124/65 (mmHg) O2 Sat by Pulse 95 95 98 Oximetry Oxygen Devices in Use Now: None Appearance: Alert, slightly up in ICU bed. In good spirits. Looks comfortable. Eyes: No Scleral Icterus Extremities: No Edema, No Clubbing, Cyanosis, - Skin: No Rash or Ulcers, No Nodules or Sclerosis, - Neurological: Alert and Oriented x 3, NL Sensation Result Diagrams: 08/26/17 06:05 08/25/17 11:06 Additional Lab and Data: Lab Results 08/23/17 08/23/17 08/23/17 Range/Units 13:40 13:40 13:40 WBC 5.7 (3.5-10.8) 10^3/ul RBC 4.97 (4.0-5.4) 10^6/ul Hgb 15.7 (14.0-18.0) g/dl Hct 46 (42-52) % MCV 93 (80-94) fL MCH 32 H (27-31) pg MCHC 34 (31-36) g/dl RDW 13 (10.5-15) % Plt Count 209 (150-450) 10^3/ul MPV 8.3 (7.4-10.4) um3 Neut % (Auto) 52.4 (38-83) % Lymph % (Auto) 35.9 (25-47) % [place] % (Auto) 8.7 H (0-7) % Eos % (Auto) 2.6 (0-6) % Baso % (Auto) 0.4 (0-2) % Absolute Neuts (auto) 3.0 (1.5-7.7) 10^3/ul Absolute Lymphs (auto) 2.1 (1.0-4.8) 10^3/ul Absolute Monos (auto) 0.5 (0-0.8) 10^3/ul Absolute Eos (auto) 0.1 (0-0.6) 10^3/ul Absolute Basos (auto) 0 (0-0.2) 10^3/ul Absolute Nucleated RBC 0 10^3/ul Nucleated RBC % 0.1 APTT (26.0-36.3) seconds Sodium 137 L (139-145) mmol/L Potassium 3.9 (3.5-5.0) mmol/L Chloride 98 L (101-111) mmol/L Carbon Dioxide 32 (22-32) mmol/L Anion Gap 7 (2-11) mmol/L BUN 20 (6-24) mg/dL Creatinine 1.20 H (0.67-1.17) mg/dL Est GFR ( Amer) 77.4 (>60) Est GFR (Non-Af Amer) 60.2 (>60) BUN/Creatinine Ratio 16.7 (8-20) Glucose 157 H (70-100) mg/dL Lactic Acid (0.5-2.0) mmol/L Calcium 9.2 (8.6-10.3) mg/dL Magnesium 1.9 (1.9-2.7) mg/dL Total Bilirubin 0.90 (0.2-1.0) mg/dL AST 45 H (13-39) U/L ALT 36 (7-52) U/L Alkaline Phosphatase 58 (34-104) U/L Total Creatine Kinase 89 (10-223) U/L CK-MB (CK-2) 2.5 (0.6-6.3) ng/mL Myoglobin 47.6 (17.4-105.7) ng/mL Troponin I 0.01 (<0.04) ng/mL B-Natriuretic Peptide 85 ( - 100) pg/mL Total Protein 7.1 (6.4-8.9) g/dL Albumin 4.1 (3.2-5.2) g/dL Globulin 3.0 (2-4) g/dL Albumin/Globulin Ratio 1.4 (1-3) TSH 2.60 (0.34-5.60) mcIU/mL Urine Color Urine Appearance Urine pH (5-9) Ur Specific [place] (1.010-1.030) Urine Protein (Negative) Urine Ketones (Negative) Urine Blood (Negative) Urine Nitrate (Negative) Urine Bilirubin (Negative) Urine Urobilinogen (Negative) Ur Leukocyte Esterase (Negative) Urine WBC (Auto) (Absent) Urine RBC (Auto) (Absent) Ur Squamous Epith Cells (Absent) Urine Bacteria (Absent) Hyaline Casts (Absent) Urine Glucose (Negative) 08/23/17 08/23/17 08/23/17 Range/Units 13:40 15:22 16:02 WBC (3.5-10.8) 10^3/ul RBC (4.0-5.4) 10^6/ul Hgb (14.0-18.0) g/dl Hct (42-52) % MCV (80-94) fL MCH (27-31) pg MCHC (31-36) g/dl RDW (10.5-15) % Plt Count (150-450) 10^3/ul MPV (7.4-10.4) um3 Neut % (Auto) (38-83) % Lymph % (Auto) (25-47) % Pepin % (Auto) (0-7) % Eos % (Auto) (0-6) % Baso % (Auto) (0-2) % Absolute Neuts (auto) (1.5-7.7) 10^3/ul Absolute Lymphs (auto) (1.0-4.8) 10^3/ul Absolute Monos (auto) (0-0.8) 10^3/ul Absolute Eos (auto) (0-0.6) 10^3/ul Absolute Basos (auto) (0-0.2) 10^3/ul Absolute Nucleated RBC 10^3/ul Nucleated RBC % APTT 30.7 (26.0-36.3) seconds Sodium (139-145) mmol/L Potassium (3.5-5.0) mmol/L Chloride (101-111) mmol/L Carbon Dioxide (22-32) mmol/L Anion Gap (2-11) mmol/L BUN (6-24) mg/dL Creatinine (0.67-1.17) mg/dL Est GFR ( Amer) (>60) Est GFR (Non-Af Amer) (>60) BUN/Creatinine Ratio (8-20) Glucose (70-100) mg/dL Lactic Acid 1.7 (0.5-2.0) mmol/L Calcium (8.6-10.3) mg/dL Magnesium (1.9-2.7) mg/dL Total Bilirubin (0.2-1.0) mg/dL AST (13-39) U/L ALT (7-52) U/L Alkaline Phosphatase (34-104) U/L Total Creatine Kinase (10-223) U/L CK-MB (CK-2) (0.6-6.3) ng/mL Myoglobin (17.4-105.7) ng/mL Troponin I (<0.04) ng/mL B-Natriuretic Peptide ( - 100) pg/mL Total Protein (6.4-8.9) g/dL Albumin (3.2-5.2) g/dL Globulin (2-4) g/dL Albumin/Globulin Ratio (1-3) TSH (0.34-5.60) mcIU/mL Urine Color Straw Urine Appearance Clear Urine pH 7.0 (5-9) Ur Specific [place] 1.008 L (1.010-1.030) Urine Protein 1+(30 mg/dl) A (Negative) Urine Ketones Negative (Negative) Urine Blood 2+ A (Negative) Urine Nitrate Negative (Negative) Urine Bilirubin Negative (Negative) Urine Urobilinogen Negative (Negative) Ur Leukocyte Esterase Negative (Negative) Urine WBC (Auto) Trace(0-5/hpf) (Absent) Urine RBC (Auto) Absent (Absent) Ur Squamous Epith Cells Present A (Absent) Urine Bacteria Absent (Absent) Hyaline Casts Present A (Absent) Urine Glucose Negative (Negative) Microbiology and Other Data: Microbiology 08/23/17 17:45 Nasal Screen MRSA (PCR)(IRA) - Final Nasal Mrsa Not Detected Assess/Plan/Problems-Billing Assessment: 66 yo M with h/o HTN presents with SSS - Patient Problems (1) Heart block Current Visit: Yes Status: Acute Code(s): I45.9 - CONDUCTION DISORDER, UNSPECIFIED SNOMED Code(s): 899160495 Comment: Temporary pacer in place, now set at 30. Lowest HR 45 on vitals screen. TSH wnl. Lyme serology pending, lab will try to get ETA from [facility]. Discussed with Dr. Moctezuma. AV conduction looks normal on monitor screen. Continue IV ceftriaxone. (2) HTN (hypertension) Current Visit: Yes Status: Acute Code(s): I10 - ESSENTIAL (PRIMARY) HYPERTENSION SNOMED Code(s): 18945660 Comment: normotensive, HCTZ held (3) DVT prophylaxis Current Visit: Yes Status: Acute Code(s): LRC7594 - SNOMED Code(s): 501116492 Comment: HSQ-holding tonight for possible pacer.
[2017-08-26] MEDS: Aspirin EC TAB* 81 MG TAB.EC PO SCH (09:04)
[2017-08-27] MEDS: Heparin VIAL(*) 5000 UNITS/ML VIAL (FIVE THOUSAND) SUBCUT SCH ×3 (05:43→21:54)
[2017-08-27] MEDS: Aspirin EC TAB* 81 MG TAB.EC PO SCH (09:00)
--- NOTE | 2017-08-27 10:14 | PN ---
Subjective Date of Service: 08/27/17 Interval History: Telemetry reviewed; bradycardic to 40 overnight, also with an episode of narrow complex tachycardia. He has had no symptoms since being in the ED. Feels great. Family History: Findings - grandmother of MS in her 80s, no other known cardiac disease Social History: Unchanged from Admission Objective Active Medications: Acetaminophen (Tylenol Tab*) 650 mg PO Q4H PRN PRN Reason: FEVER/PAIN Aspirin (Aspirin Ec Tab*) 81 mg PO DAILY [facility] Last Admin: 08/27/17 09:00 Dose: 81 mg Cefazolin Sodium/Dextrose (Kefzol Syringe 1 Gm/10 Ml Flush Syringe(*)) 1 gm FLUSH ONCE ONE Stop: 08/28/17 12:34 Heparin Sodium (Porcine) (Heparin Vial(*)) 5,000 units SUBCUT Q8HR [facility] Last Admin: 08/27/17 05:43 Dose: 5,000 units Sodium Chloride (Ns 0.9% 1000 Ml*) 1,000 mls @ 100 mls/hr IV PER RATE [facility] Cefazolin Sodium 2 gm/ Sodium (Chloride) 20 mls @ 60 mls/hr IVPB ONCE ONE Stop: 08/28/17 12:19 Vital Signs - 8 hr 08/27/17 08/27/17 08/27/17 03:00 04:00 04:01 Temperature 97.8 F Pulse Rate Respiratory 13 16 10 Rate Blood Pressure 104/65 111/65 (mmHg) O2 Sat by Pulse 99 97 97 Oximetry 08/27/17 08/27/17 08/27/17 05:00 05:01 05:48 Temperature Pulse Rate Respiratory 12 17 14 Rate Blood Pressure 127/76 (mmHg) O2 Sat by Pulse 97 97 Oximetry 08/27/17 08/27/17 08/27/17 06:00 06:01 07:00 Temperature Pulse Rate 47 Respiratory 12 12 12 Rate Blood Pressure 132/67 106/62 (mmHg) O2 Sat by Pulse 94 94 95 Oximetry 08/27/17 08/27/17 08/27/17 08:00 08:01 08:20 Temperature 98.9 F Pulse Rate 46 45 Respiratory 16 14 Rate Blood Pressure 120/66 (mmHg) O2 Sat by Pulse 97 97 Oximetry 08/27/17 08/27/17 09:00 09:04 Temperature Pulse Rate 54 61 Respiratory 15 19 Rate Blood Pressure 139/76 (mmHg) O2 Sat by Pulse 96 96 Oximetry Oxygen Devices in Use Now: None Appearance: alert, well appearing Eyes: No Scleral Icterus Ears/Nose/Mouth/Throat: NL Teeth, Lips, Gums, Mucous Membranes Moist Neck: NL Appearance and Movements; NL JVP Respiratory: Symmetrical Chest Expansion and Respiratory Effort, Clear to Auscultation Cardiovascular: NL Sounds; No Murmurs; No JVD, RRR, No Edema, - - HR in the 60s , regular rhythm Abdominal: NL Sounds; No Tenderness; No Distention, No Hepatosplenomegaly Lymphatic: No Cervical Adenopathy Extremities: No Edema Skin: No Rash or Ulcers Neurological: Alert and Oriented x 3 Result Diagrams: 08/26/17 06:05 08/25/17 11:06 Additional Lab and Data: Lab Results 08/23/17 08/23/17 08/23/17 Range/Units 13:40 13:40 13:40 WBC 5.7 (3.5-10.8) 10^3/ul RBC 4.97 (4.0-5.4) 10^6/ul Hgb 15.7 (14.0-18.0) g/dl Hct 46 (42-52) % MCV 93 (80-94) fL MCH 32 H (27-31) pg MCHC 34 (31-36) g/dl RDW 13 (10.5-15) % Plt Count 209 (150-450) 10^3/ul MPV 8.3 (7.4-10.4) um3 Neut % (Auto) 52.4 (38-83) % Lymph % (Auto) 35.9 (25-47) % [place] % (Auto) 8.7 H (0-7) % Eos % (Auto) 2.6 (0-6) % Baso % (Auto) 0.4 (0-2) % Absolute Neuts (auto) 3.0 (1.5-7.7) 10^3/ul Absolute Lymphs (auto) 2.1 (1.0-4.8) 10^3/ul Absolute Monos (auto) 0.5 (0-0.8) 10^3/ul Absolute Eos (auto) 0.1 (0-0.6) 10^3/ul Absolute Basos (auto) 0 (0-0.2) 10^3/ul Absolute Nucleated RBC 0 10^3/ul Nucleated RBC % 0.1 APTT (26.0-36.3) seconds Sodium 137 L (139-145) mmol/L Potassium 3.9 (3.5-5.0) mmol/L Chloride 98 L (101-111) mmol/L Carbon Dioxide 32 (22-32) mmol/L Anion Gap 7 (2-11) mmol/L BUN 20 (6-24) mg/dL Creatinine 1.20 H (0.67-1.17) mg/dL Est GFR ( Amer) 77.4 (>60) Est GFR (Non-Af Amer) 60.2 (>60) BUN/Creatinine Ratio 16.7 (8-20) Glucose 157 H (70-100) mg/dL Lactic Acid (0.5-2.0) mmol/L Calcium 9.2 (8.6-10.3) mg/dL Magnesium 1.9 (1.9-2.7) mg/dL Total Bilirubin 0.90 (0.2-1.0) mg/dL AST 45 H (13-39) U/L ALT 36 (7-52) U/L Alkaline Phosphatase 58 (34-104) U/L Total Creatine Kinase 89 (10-223) U/L CK-MB (CK-2) 2.5 (0.6-6.3) ng/mL Myoglobin 47.6 (17.4-105.7) ng/mL Troponin I 0.01 (<0.04) ng/mL B-Natriuretic Peptide 85 ( - 100) pg/mL Total Protein 7.1 (6.4-8.9) g/dL Albumin 4.1 (3.2-5.2) g/dL Globulin 3.0 (2-4) g/dL Albumin/Globulin Ratio 1.4 (1-3) TSH 2.60 (0.34-5.60) mcIU/mL Urine Color Urine Appearance Urine pH (5-9) Ur Specific [place] (1.010-1.030) Urine Protein (Negative) Urine Ketones (Negative) Urine Blood (Negative) Urine Nitrate (Negative) Urine Bilirubin (Negative) Urine Urobilinogen (Negative) Ur Leukocyte Esterase (Negative) Urine WBC (Auto) (Absent) Urine RBC (Auto) (Absent) Ur Squamous Epith Cells (Absent) Urine Bacteria (Absent) Hyaline Casts (Absent) Urine Glucose (Negative) 08/23/17 08/23/17 08/23/17 Range/Units 13:40 15:22 16:02 WBC (3.5-10.8) 10^3/ul RBC (4.0-5.4) 10^6/ul Hgb (14.0-18.0) g/dl Hct (42-52) % MCV (80-94) fL MCH (27-31) pg MCHC (31-36) g/dl RDW (10.5-15) % Plt Count (150-450) 10^3/ul MPV (7.4-10.4) um3 Neut % (Auto) (38-83) % Lymph % (Auto) (25-47) % [place] % (Auto) (0-7) % Eos % (Auto) (0-6) % Baso % (Auto) (0-2) % Absolute Neuts (auto) (1.5-7.7) 10^3/ul Absolute Lymphs (auto) (1.0-4.8) 10^3/ul Absolute Monos (auto) (0-0.8) 10^3/ul Absolute Eos (auto) (0-0.6) 10^3/ul Absolute Basos (auto) (0-0.2) 10^3/ul Absolute Nucleated RBC 10^3/ul Nucleated RBC % APTT 30.7 (26.0-36.3) seconds Sodium (139-145) mmol/L Potassium (3.5-5.0) mmol/L Chloride (101-111) mmol/L Carbon Dioxide (22-32) mmol/L Anion Gap (2-11) mmol/L BUN (6-24) mg/dL Creatinine (0.67-1.17) mg/dL Est GFR ( Amer) (>60) Est GFR (Non-Af Amer) (>60) BUN/Creatinine Ratio (8-20) Glucose (70-100) mg/dL Lactic Acid 1.7 (0.5-2.0) mmol/L Calcium (8.6-10.3) mg/dL Magnesium (1.9-2.7) mg/dL Total Bilirubin (0.2-1.0) mg/dL AST (13-39) U/L ALT (7-52) U/L Alkaline Phosphatase (34-104) U/L Total Creatine Kinase (10-223) U/L CK-MB (CK-2) (0.6-6.3) ng/mL Myoglobin (17.4-105.7) ng/mL Troponin I (<0.04) ng/mL B-Natriuretic Peptide ( - 100) pg/mL Total Protein (6.4-8.9) g/dL Albumin (3.2-5.2) g/dL Globulin (2-4) g/dL Albumin/Globulin Ratio (1-3) TSH (0.34-5.60) mcIU/mL Urine Color Straw Urine Appearance Clear Urine pH 7.0 (5-9) Ur Specific [place] 1.008 L (1.010-1.030) Urine Protein 1+(30 mg/dl) A (Negative) Urine Ketones Negative (Negative) Urine Blood 2+ A (Negative) Urine Nitrate Negative (Negative) Urine Bilirubin Negative (Negative) Urine Urobilinogen Negative (Negative) Ur Leukocyte Esterase Negative (Negative) Urine WBC (Auto) Trace(0-5/hpf) (Absent) Urine RBC (Auto) Absent (Absent) Ur Squamous Epith Cells Present A (Absent) Urine Bacteria Absent (Absent) Hyaline Casts Present A (Absent) Urine Glucose Negative (Negative) Microbiology and Other Data: Microbiology 08/23/17 17:45 Nasal Screen MRSA (PCR)(IRA) - Final Nasal Mrsa Not Detected Assess/Plan/Problems-Billing Assessment: 66 yo M with h/o HTN presents with sob and weakness, found to have high grade heart block - Patient Problems (1) Sick sinus syndrome Current Visit: Yes Status: Acute Code(s): I49.5 - SICK SINUS SYNDROME SNOMED Code(s): 61887023 Comment: Plan for pacemaker tomorrow Continue bed rest Telemetry Transcutaneous pacer (2) DVT prophylaxis Current Visit: Yes Status: Acute Code(s): VNY5190 - SNOMED Code(s): 558422437 Comment: Heparin SC (3) HTN (hypertension) Current Visit: Yes Status: Acute Code(s): I10 - ESSENTIAL (PRIMARY) HYPERTENSION SNOMED Code(s): 65589753 Comment: normotensive off home hctz Status and Disposition: PPM tomorrow with Dr. Moctezuma
[2017-08-27] MEDS ORDERED: NS 0.9% IVPB ONE (11:00)
[2017-08-27] MEDS ORDERED: CEFAZOLIN IVPB ONE (11:00)
[2017-08-28] MEDS: NS 0.9% 1000 ML* 1,000 ML IV SCH ×3 (00:15→16:04)
[2017-08-28] MEDS: Heparin VIAL(*) 5000 UNITS/ML VIAL (FIVE THOUSAND) SUBCUT SCH ×3 (05:45→22:04)
[2017-08-28] MEDS ORDERED: CEFAZOLIN IVPB ONE (06:00)
[2017-08-28] MEDS ORDERED: NS 0.9% IVPB ONE (06:00)
[2017-08-28 06:28] LABS: Hematocrit 41 % (42-52); Hemoglobin 14.5 g/dl (14.0-18.0); Mean Corpuscular HGB Conc 35 g/dl (31-36); Mean Corpuscular Hemoglobin 32 pg (27-31); Mean Corpuscular Volume 91 fL (80-94); Mean Platelet Volume 8.3 um3 (7.4-10.4); Platelet Count 160 10^3/ul (150-450); Red Blood Count 4.53 10^6/ul (4.0-5.4); Red Cell Distribution Width 13 % (10.5-15); White Blood Count 4.9 10^3/ul (3.5-10.8)
[2017-08-28 06:31] LABS: INR 0.95 (0.77-1.02)
[2017-08-28 06:42] LABS: EGFR Non-African American 79.8 (>60)
--- NOTE | 2017-08-28 07:39 | PN ---
Subjective Date of Service: 08/28/17 Interval History: No overnight events. Tele alarms reviewed. Currently in sinus bradycardia. Feels good, no complaints. Family History: Findings - grandmother of [place] in her 80s, no other known cardiac disease Social History: Unchanged from Admission Objective Active Medications: Acetaminophen (Tylenol Tab*) 650 mg PO Q4H PRN PRN Reason: FEVER/PAIN Aspirin (Aspirin Ec Tab*) 81 mg PO DAILY [facility] Last Admin: 08/27/17 09:00 Dose: 81 mg Cefazolin Sodium/Dextrose (Kefzol Syringe 1 Gm/10 Ml Flush Syringe(*)) 1 gm FLUSH ONCE ONE Stop: 08/28/17 12:34 Heparin Sodium (Porcine) (Heparin Vial(*)) 5,000 units SUBCUT Q8HR [facility] Last Admin: 08/28/17 05:45 Dose: Not Given Sodium Chloride (Ns 0.9% 1000 Ml*) 1,000 mls @ 100 mls/hr IV PER RATE [facility] Last Admin: 08/28/17 00:15 Dose: 100 mls/hr Vital Signs - 8 hr 08/28/17 08/28/17 08/28/17 00:00 01:00 02:00 Temperature 98.2 F Pulse Rate Respiratory 16 12 10 Rate Blood Pressure 126/70 114/65 113/60 (mmHg) O2 Sat by Pulse 94 98 Oximetry 08/28/17 08/28/17 08/28/17 03:00 04:00 05:00 Temperature 98 F Pulse Rate 43 46 Respiratory 15 11 13 Rate Blood Pressure 131/68 113/57 116/62 (mmHg) O2 Sat by Pulse 98 95 96 Oximetry 08/28/17 08/28/17 08/28/17 05:45 06:00 07:00 Temperature Pulse Rate 51 52 Respiratory 12 16 18 Rate Blood Pressure 109/67 124/71 (mmHg) O2 Sat by Pulse 96 96 Oximetry 08/28/17 07:34 Temperature Pulse Rate Respiratory 17 Rate Blood Pressure (mmHg) O2 Sat by Pulse Oximetry Oxygen Devices in Use Now: None Appearance: alert, well appearing Eyes: No Scleral Icterus Ears/Nose/Mouth/Throat: NL Teeth, Lips, Gums Neck: NL Appearance and Movements; NL JVP Respiratory: Symmetrical Chest Expansion and Respiratory Effort, Clear to Auscultation Cardiovascular: NL Sounds; No Murmurs; No JVD, RRR Abdominal: NL Sounds; No Tenderness; No Distention, - - right groin site without hematoma Lymphatic: No Cervical Adenopathy Extremities: No Edema Skin: No Rash or Ulcers Neurological: Alert and Oriented x 3 Result Diagrams: 08/28/17 06:03 08/28/17 06:03 Additional Lab and Data: Lab Results 08/23/17 08/23/17 08/23/17 Range/Units 13:40 13:40 13:40 WBC 5.7 (3.5-10.8) 10^3/ul RBC 4.97 (4.0-5.4) 10^6/ul Hgb 15.7 (14.0-18.0) g/dl Hct 46 (42-52) % MCV 93 (80-94) fL MCH 32 H (27-31) pg MCHC 34 (31-36) g/dl RDW 13 (10.5-15) % Plt Count 209 (150-450) 10^3/ul MPV 8.3 (7.4-10.4) um3 Neut % (Auto) 52.4 (38-83) % Lymph % (Auto) 35.9 (25-47) % [place] % (Auto) 8.7 H (0-7) % Eos % (Auto) 2.6 (0-6) % Baso % (Auto) 0.4 (0-2) % Absolute Neuts (auto) 3.0 (1.5-7.7) 10^3/ul Absolute Lymphs (auto) 2.1 (1.0-4.8) 10^3/ul Absolute Monos (auto) 0.5 (0-0.8) 10^3/ul Absolute Eos (auto) 0.1 (0-0.6) 10^3/ul Absolute Basos (auto) 0 (0-0.2) 10^3/ul Absolute Nucleated RBC 0 10^3/ul Nucleated RBC % 0.1 APTT (26.0-36.3) seconds Sodium 137 L (139-145) mmol/L Potassium 3.9 (3.5-5.0) mmol/L Chloride 98 L (101-111) mmol/L Carbon Dioxide 32 (22-32) mmol/L Anion Gap 7 (2-11) mmol/L BUN 20 (6-24) mg/dL Creatinine 1.20 H (0.67-1.17) mg/dL Est GFR ( Amer) 77.4 (>60) Est GFR (Non-Af Amer) 60.2 (>60) BUN/Creatinine Ratio 16.7 (8-20) Glucose 157 H (70-100) mg/dL Lactic Acid (0.5-2.0) mmol/L Calcium 9.2 (8.6-10.3) mg/dL Magnesium 1.9 (1.9-2.7) mg/dL Total Bilirubin 0.90 (0.2-1.0) mg/dL AST 45 H (13-39) U/L ALT 36 (7-52) U/L Alkaline Phosphatase 58 (34-104) U/L Total Creatine Kinase 89 (10-223) U/L CK-MB (CK-2) 2.5 (0.6-6.3) ng/mL Myoglobin 47.6 (17.4-105.7) ng/mL Troponin I 0.01 (<0.04) ng/mL B-Natriuretic Peptide 85 ( - 100) pg/mL Total Protein 7.1 (6.4-8.9) g/dL Albumin 4.1 (3.2-5.2) g/dL Globulin 3.0 (2-4) g/dL Albumin/Globulin Ratio 1.4 (1-3) TSH 2.60 (0.34-5.60) mcIU/mL Urine Color Urine Appearance Urine pH (5-9) Ur Specific [place] (1.010-1.030) Urine Protein (Negative) Urine Ketones (Negative) Urine Blood (Negative) Urine Nitrate (Negative) Urine Bilirubin (Negative) Urine Urobilinogen (Negative) Ur Leukocyte Esterase (Negative) Urine WBC (Auto) (Absent) Urine RBC (Auto) (Absent) Ur Squamous Epith Cells (Absent) Urine Bacteria (Absent) Hyaline Casts (Absent) Urine Glucose (Negative) 08/23/17 08/23/17 08/23/17 Range/Units 13:40 15:22 16:02 WBC (3.5-10.8) 10^3/ul RBC (4.0-5.4) 10^6/ul Hgb (14.0-18.0) g/dl Hct (42-52) % MCV (80-94) fL MCH (27-31) pg MCHC (31-36) g/dl RDW (10.5-15) % Plt Count (150-450) 10^3/ul MPV (7.4-10.4) um3 Neut % (Auto) (38-83) % Lymph % (Auto) (25-47) % [place] % (Auto) (0-7) % Eos % (Auto) (0-6) % Baso % (Auto) (0-2) % Absolute Neuts (auto) (1.5-7.7) 10^3/ul Absolute Lymphs (auto) (1.0-4.8) 10^3/ul Absolute Monos (auto) (0-0.8) 10^3/ul Absolute Eos (auto) (0-0.6) 10^3/ul Absolute Basos (auto) (0-0.2) 10^3/ul Absolute Nucleated RBC 10^3/ul Nucleated RBC % APTT 30.7 (26.0-36.3) seconds Sodium (139-145) mmol/L Potassium (3.5-5.0) mmol/L Chloride (101-111) mmol/L Carbon Dioxide (22-32) mmol/L Anion Gap (2-11) mmol/L BUN (6-24) mg/dL Creatinine (0.67-1.17) mg/dL Est GFR ( Amer) (>60) Est GFR (Non-Af Amer) (>60) BUN/Creatinine Ratio (8-20) Glucose (70-100) mg/dL Lactic Acid 1.7 (0.5-2.0) mmol/L Calcium (8.6-10.3) mg/dL Magnesium (1.9-2.7) mg/dL Total Bilirubin (0.2-1.0) mg/dL AST (13-39) U/L ALT (7-52) U/L Alkaline Phosphatase (34-104) U/L Total Creatine Kinase (10-223) U/L CK-MB (CK-2) (0.6-6.3) ng/mL Myoglobin (17.4-105.7) ng/mL Troponin I (<0.04) ng/mL B-Natriuretic Peptide ( - 100) pg/mL Total Protein (6.4-8.9) g/dL Albumin (3.2-5.2) g/dL Globulin (2-4) g/dL Albumin/Globulin Ratio (1-3) TSH (0.34-5.60) mcIU/mL Urine Color Straw Urine Appearance Clear Urine pH 7.0 (5-9) Ur Specific [place] 1.008 L (1.010-1.030) Urine Protein 1+(30 mg/dl) A (Negative) Urine Ketones Negative (Negative) Urine Blood 2+ A (Negative) Urine Nitrate Negative (Negative) Urine Bilirubin Negative (Negative) Urine Urobilinogen Negative (Negative) Ur Leukocyte Esterase Negative (Negative) Urine WBC (Auto) Trace(0-5/hpf) (Absent) Urine RBC (Auto) Absent (Absent) Ur Squamous Epith Cells Present A (Absent) Urine Bacteria Absent (Absent) Hyaline Casts Present A (Absent) Urine Glucose Negative (Negative) Microbiology and Other Data: Microbiology 08/23/17 17:45 Nasal Screen MRSA (PCR)(IRA) - Final Nasal Mrsa Not Detected Assess/Plan/Problems-Billing Assessment: 66 yo M with h/o HTN presents with sob and weakness, found to have high grade heart block - Patient Problems (1) Sick sinus syndrome Current Visit: Yes Status: Acute Code(s): I49.5 - SICK SINUS SYNDROME SNOMED Code(s): 68240753 Comment: Plan for pacemaker today. Telemetry Transcutaneous pacer in place (2) DVT prophylaxis Current Visit: Yes Status: Acute Code(s): AIQ0925 - SNOMED Code(s): 665527900 Comment: Heparin SC (3) HTN (hypertension) Current Visit: Yes Status: Acute Code(s): I10 - ESSENTIAL (PRIMARY) HYPERTENSION SNOMED Code(s): 88777361 Comment: normotensive off home hctz Status and Disposition: PPM today with Dr. Moctezuma
[2017-08-28] MEDS: Aspirin EC TAB* 81 MG TAB.EC PO SCH ×2 (08:00→08:14)
[2017-08-28] MEDS ORDERED: CEFAZOLIN 2 GM/20 ML IVPB ONE ×2 (12:00)
[2017-08-28] MEDS ORDERED: ceFAZolin 1 GM/10 ML flush(*) SYRINGE for pocket flush (cardiology) FLUSH ONE (12:33)
[2017-08-28] MEDS ORDERED: ceFAZolin 1 GM VIAL(*) 1 GM in NS 0.9% 50 ML* 50 ML IVPB ONE (12:33)
[2017-08-28] MEDS ORDERED: ceFAZolin 2 GM PREMIX (*) 2 GM/50 ML BAG IVPB ONE (12:33)
[2017-08-28] MEDS ORDERED: Flumazenil* 0.1 MG/ML 5 ML MDV ONE (13:31)
[2017-08-28] MEDS ORDERED: fentaNYL* 50 MCG/ML 2 ML VIAL (100 MCG VIAL) ONE (13:31)
[2017-08-28] MEDS ORDERED: Midazolam* 1 MG/ML 5 ML VIAL (5 MG) ONE (13:31)
[2017-08-28] MEDS ORDERED: Naloxone* 0.4 MG/ML 1 ML VIAL ONE (13:31)
[2017-08-28] MEDS ORDERED: Lidocaine 1% INJ* 10 MG/ML 30 ML SDV ONE (13:31)
[2017-08-28] MEDS ORDERED: oxyCODONE/Acetamin 5/325 MG* TAB PO PRN (14:49)
--- NOTE | 2017-08-28 18:57 | RAD ---
Indication: Post pacemaker placement. Comparison: August 23, 2017 Technique: Upright AP 1707 hours Report: Elevated lung volumes. Leads of newly placed LEFT chest wall pacemaker extend to the RIGHT atrium and RIGHT ventricle. Negative for pneumothorax. Clear lungs and pleural spaces. Mild cardiomegaly. Unremarkable central pulmonary vasculature. IMPRESSION: Negative for pneumothorax or pulmonary edema post dual chamber pacemaker placement.
[2017-08-28] MEDS: ceFAZolin 1 GM VIAL(*) 1 GM in D5W 50 ML BAG* 50 ML IVPB SCH (22:04)
--- NOTE | 2017-08-28 22:17 | OP ---
DATE OF OPERATION: 08/28/17 - ROOM #444 DATE OF : 46 SURGEON: Ernesto Moctezuma MD ANESTHESIA: Local anesthesia. PRE-OP DIAGNOSES: Third degree heart block, syncope. POST-OP DIAGNOSES: Third degree heart block, syncope. OPERATIVE PROCEDURE: Dual chamber pacemaker implantation. ESTIMATED BLOOD LOSS: Nil. COMPLICATIONS: None. INDICATIONS: The patient is a 66-year-old gentleman who is very active, who is at home, who has been getting increasing dyspnea over 2 days. The patient had a syncopal episode at home and was brought to the emergency room. In the emergency room, he had a 9-second run of nonconductive T-waves and syncope. The patient's Lyme titer was negative. All laboratory studies were normal. Permanent pacemaker was recommended. DESCRIPTION OF PROCEDURE: The patient was brought to the procedure room in a fasting state. Informed consent had been obtained prior to the procedure. All labs had been reviewed. The patient's left anterior chest was prepped and draped in a usual fashion. 1% lidocaine was used as local anesthesia. The axillary vein was entered via modified Seldinger technique. Using ultrasound guidance, a guidewire was placed. A second guidewire was placed in the same technique. A 3.5 cm incision was made in the pectoral area and blunt dissection was carried down to the pectoral fascia. A pocket was fashioned for the pacemaker. Over the first guidewire, a 7-Thai sheath introducer was placed through which a right ventricular lead was advanced to the RV apex. The right ventricular lead is a Medtronic model 5076, serial number [id number] at an R-wave sensitivity of 5, impedance 869 ohms, threshold 0.9 volts at 0.5 milliseconds. The ventricular lead was sutured to the pectoral fascia. Over the second guidewire, a 7-Thai sheath introducer was placed through which a right atrial lead was advanced to the high right atrium. The right atrial lead is a Medtronic model 5076, serial number [id number] and at a P-wave sensitivity of 5, impedance 735 ohms, threshold 0.4 volts at 0.5 milliseconds. The atrial lead was sutured to the pectoral fascia using 0 silk. A generator was attached appropriately to the atrio-ventricular leads. The generator is a Medtronic model W1DR01 serial number [id number]. The device was placed in the pocket, the surgical incision was closed in 3 layers, the patient was returned to the holding area in stable condition. [id number]/[facility] #: [id number] GUSTABO
[2017-08-29] MEDS: NS 0.9% 1000 ML* 1,000 ML IV SCH (02:31)
[2017-08-29 05:34] LABS: Hematocrit 40 % (42-52); Hemoglobin 13.8 g/dl (14.0-18.0); Mean Corpuscular HGB Conc 35 g/dl (31-36); Mean Corpuscular Hemoglobin 32 pg (27-31); Mean Corpuscular Volume 92 fL (80-94); Mean Platelet Volume 8.2 um3 (7.4-10.4); Platelet Count 147 10^3/ul (150-450); Red Blood Count 4.32 10^6/ul (4.0-5.4); Red Cell Distribution Width 13 % (10.5-15); White Blood Count 5.4 10^3/ul (3.5-10.8)
[2017-08-29] MEDS: Heparin VIAL(*) 5000 UNITS/ML VIAL (FIVE THOUSAND) SUBCUT SCH (05:37)
[2017-08-29] MEDS: ceFAZolin 1 GM VIAL(*) 1 GM in D5W 50 ML BAG* 50 ML IVPB SCH (05:37)
[2017-08-29 05:47] LABS: EGFR Non-African American 70.2 (>60)
[2017-08-29] MEDS: Aspirin EC TAB* 81 MG TAB.EC PO SCH (09:10)
[2017-08-29 09:19] VITALS: BP 118/66
[2017-08-29] MEDS ORDERED: Magnesium Sulfate 1 GM IV* 1 GM/100 ML BAG IV ONE (10:04)
--- NOTE | 2017-08-29 11:28 | RAD ---
INDICATION: Status post device placement. COMPARISON: Comparison is made with a prior study from August 28, 2017. TECHNIQUE: Dual-energy PA and lateral views of the chest were obtained. FINDINGS: The heart is within normal limits in size. Mediastinal and hilar contours appear within normal limits. The patient is status post placement of a dual chamber transvenous pacemaker. The lungs are clear. No pleural effusion or pneumothorax is seen. IMPRESSION: STATUS POST PACEMAKER PLACEMENT, NO EVIDENCE FOR ACUTE FINDING.
[2017-08-29] MEDS ORDERED: Cephalexin CAP* 500 MG PO ONE (12:49)
--- NOTE | 2017-08-29 12:54 | DS ---
CC: Dr. Carroll; Dr. Moctezuma DATE OF ADMISSION: 08/23/2017. DATE OF DISCHARGE: 08/29/2017. PRINCIPAL DISCHARGE DIAGNOSES: 1. Third degree heart block. 2. Status post permanent pacemaker placement. SECONDARY DISCHARGE DIAGNOSES: 1. Hypertension. 2. History of DVT. DISCHARGE MEDICATIONS: 1. Hydrochlorothiazide 12.5 mg daily. 2. Aspirin 81 mg daily. HOSPITAL COURSE BY PROBLEM: 1. Complete heart block: Mr. Shah was admitted with several days of dyspnea on exertion and was no ingrid to be in a high grade AV block in the emergency department. He had a witnessed syncopal episode i n the emergency department and had several compressions of CPR, after which point he had ROSC and a c ardiology consult was obtained. He was admitted to the medical service and a transvenous pacemaker w as placed. He did not require pacing and a Lyme panel was negative. With Lyme carditis ruled out, kenzie saleem was scheduled for a permanent pacemaker which was placed on 08/28/[address] Moctezuma. The pacemaker was placed without complication and he received a Medtronic 5076. His rate was set to 50 and overni ght on the night of the pacer placement, he was noted to be paced approximately 25 percent of the kayce e. He tolerated the procedure well and at the time of discharge is in a left upper extremity immobili zer and is instructed to continue that for three weeks. I made a follow-up appointment for him with Dr. Moctezuma in seven days for a wound check. 2. Hypertension: He is continued on his home HCTZ. 3. History of provoked DVT. This is in the setting of a fall from scaffolding. He is not on anticoa gulation. DISPOSITION: Mr. Shah is discharged to home on 08/29/2017 with detailed discharge instructions from Cardiology about the care of his pacer pocket. He has a follow- up appointment with Dr. Moctezuma in on e week. PHYSICAL EXAMINATION AT THE TIME OF DISCHARGE: General: Alert, well-appearing man in no distress. Vital Signs: Temperature 98.0, heart rate 67, respiratory rate 18, pulse ox 94 percent on room air, blood pressure 118/66. HEENT: Pupils equal, round, and reactive to light. Moist mucosa with no pha ryngeal exudates or erythema. Neck: No JVP, no cervical or supraclavicular lymphadenopathy. Chest: A left chest wall incision is stapled without surrounding erythema, hematoma, or drainage. His radi al pulses are 2+ bilaterally. He is in a left upper extremity immobilizer. He is in a regular rate and rhythm with a nondisplaced PMI. Lungs: Clear bilaterally. Abdomen: Soft, nontender, nondistend ed. No guarding or rebound. The liver is nonpalpable. Extremities: No edema, no rashes, no ulcers . Neurologic: Alert and oriented times three. [id number]/[facility] #: [id number]
== END 2017-08-29 13:03 | disposition home or self-care (01) | DRG 243 ==
LOC: ED 14:44 → ICU 16:36 → MEDTELE 08-28 15:52
PROVIDERS: ADMIT Hospitalist; ATTEND Internal Medicine
PROC: 0JH606Z Insertion of Pacemaker, Dual Chamber into Chest Subcutaneous Tissue and Fascia, Open Approach (ICD-10-PCS; 2017-08-23)
PROC: 02H63JZ Insertion of Pacemaker Lead into Right Atrium, Percutaneous Approach (ICD-10-PCS; 2017-08-23)
PROC: 02HK3JZ Insertion of Pacemaker Lead into Right Ventricle, Percutaneous Approach (ICD-10-PCS; 2017-08-23)
PROC: 5A1223Z Performance of Cardiac Pacing, Continuous (ICD-10-PCS; 2017-08-23)
PROC: 5A12012 Performance of Cardiac Output, Single, Manual (ICD-10-PCS; principal; 2017-08-23 19:30)
DX: I49.5 Sick sinus syndrome (principal); I44.2 Atrioventricular block, complete; Q61.5 Medullary cystic kidney; I83.92 Asymptomatic varicose veins of left lower extremity; I44.4 Left anterior fascicular block; I45.10 Unspecified right bundle-branch block; R55 Syncope and collapse; I10 Essential (primary) hypertension; Z86.718 Personal history of other venous thrombosis and embolism; Z79.82 Long term (current) use of aspirin; Z87.442 Personal history of urinary calculi; Z82.49 Family history of ischemic heart disease and other diseases of the circulatory system; Z80.0 Family history of malignant neoplasm of digestive organs; Z87.828 Personal history of other (healed) physical injury and trauma; Z85.828 Personal history of other malignant neoplasm of skin; Z72.89 Other problems related to lifestyle; Z91.81 History of falling
CPT/HCPCS: 33210; 36415; 71045; 71046; 80048; 80053; 81003; 81015; 82550; 82553; 82565; 83605; 83735; 83874; 83880; 84443; 84484; 84520; 85025; 85027; 85610; 85730; 86618; 87086; 87641; 93005; 93306; 99215; 99284; A9270-GY; C1776; C1887; G0463; J0461; J0690; J0696; J1644; J2060; J2250; J2270; J2310; J3010; J3475

== ENCOUNTER 2018-03-17 18:12 | Emergency (ER) | payer MEDICARE, BC ==
--- NOTE | 2018-03-17 20:29 | ED ---
Adult Trauma - HPI Summary HPI Summary: The pt is a 67 y/o male accompanied by his presenting to [facility] c/o confusion and memory loss s/p a fall at 1300 hrs. He fell from a height to 7 feet onto a gravel driveway while painting. The fall was unwitnessed. He is unsure if he hit his head on the ground or whether he lost consciousness. The confusion and memory loss resolved [employer]. He notes READ, soreness in the sacral region, and LUE abrasion but denies neck pain, nausea and tingling. The aching pain is rated 4/10 in severity. - History of Current Complaint Chief Complaint: EDHeadInjury Stated Complaint: FALL/HEAD INJURY Time Seen by Provider: 03/17/18 19:13 Hx Obtained From: Patient Mechanism of Injury: Fall - From a height of 7 feet Ambulatory at the Scene: Yes Loss of Consciousness: unsure Onset/Duration: Started Hours Ago - 1330 hrs Onset of Pain: Post Accident Onset Severity: Moderate Current Severity: Moderate Pain Intensity: 4 Pain Scale Used: 0-10 Numeric Location: Head, Other - Sacral region Character: Aching Associated Signs & Symptoms: Positive: Memory Loss. Negative: Nausea/Vomiting, Numbness/Weakness - Additional Pertinent History Primary Care Physician: [id number] - Allergy/Home Medications Allergies/Adverse Reactions: Allergies Allergy/AdvReac Type Severity Reaction Status Date / Time No Known Allergies Allergy Verified 03/17/18 18:48 Home Medications: Home Medications Metoprolol Succinate 1 tab PO DAILY 03/17/18 [History Confirmed 03/17/18] PMH/Surg Hx/FS Hx/Imm Hx Previously Healthy: No Cardiovascular History: Reports: Hx Deep Vein Thrombosis, Hx Hypertension, Hx Pacemaker/ICD, Other Cardiovascular Problems/Disorders - bradycardia, SSS GI History: Reports: Hx Gastroesophageal Reflux Disease History: Reports: Hx Kidney Stones Sensory History: Reports: Hx Contacts or Glasses Denies: Hx Legally Blind, Hx Deafness, Hx Hearing Aid Opthamlomology History: Reports: Hx Contacts or Glasses Denies: Hx Legally Blind - Cancer History Cancer Type, Location and Year: None reported - Surgical History Surgery Procedure, Year, and Place: kidney stone removal Infectious Disease History: No Infectious Disease History: Denies: Traveled Outside the [place] in Last 30 Days - Family History Known Family History: Positive: Cardiac Disease - [place]- mother, Other - esophageal cancer-father - Social History Occupation: Employed Full-time Lives: With Family Alcohol Use: None Hx Substance Use: No Substance Use Type: Reports: None Hx Tobacco Use: No Smoking Status (MU): Never Smoked Tobacco Have You Smoked in the Last Year: No Review of Systems Constitutional: Other - Positive: Confusion , memory loss Negative: Nausea Musculoskeletal: Negative - Neck pain , Other - Positive: Sacral region soreness Positive: Bruising - of the LUE Neurological: Negative - Tingling Positive: Headache. Negative: Numbness All Other Systems Reviewed And Are Negative: Yes Physical Exam - Summary Physical Exam Summary: Appearance: The patient is well-nourished in no acute distress and in no acute pain. Skin: Scrapes on the L thenar eminence and proximal L volar forearm. The skin rest of the skin is warm and dry and skin color reflects adequate perfusion. HEENT: The head is normocephalic and atraumatic. The pupils are equal and reactive. The conjunctivae are clear and without drainage. Nares are patent and without drainage. Mouth reveals moist mucous membranes and the throat is without erythema and exudate. The external ears are intact. The ear canals are patent and without drainage. The tympanic membranes are intact. Neck: The neck is supple with full range of motion and non-tender. There are no carotid bruits. There is no neck vein distension. Respiratory: Chest is non-tender. Lungs are clear to auscultation and breath sounds are symmetrical and equal. Cardiovascular: Heart is regular rate and rhythm. There is no murmur or rub auscultated. There is no peripheral edema and pulses are symmetrical and equal. Abdomen: The abdomen is soft and non-tender. There are normal bowel sounds heard in all four quadrants and there is no organomegaly palpated. Musculoskeletal:L 5th finger has an small subungual hematoma. There is no back tenderness noted. Extremities have full range of motion. There is good capillary refill. There is no peripheral edema or calf tenderness elicited. Neurological: Patient is alert and oriented to person, place and time. The patient has symmetrical motor strength in all four extremities. Cranial nerves are grossly intact. Deep tendon reflexes are symmetrical and equal in all four extremities. Psychiatric: The patient has an appropriate affect and does not exhibit any anxiety or depression. GCS:15 Triage Information Reviewed: Yes Vital Signs On Initial Exam: Initial Vitals Temp Pulse Resp BP Pulse Ox 98.2 F 73 20 136/64 98 03/17/18 18:44 03/17/18 18:44 03/17/18 18:44 03/17/18 18:44 03/17/18 18:44 Vital Signs Reviewed: Yes Diagnostics - Vital Signs Vital Signs Temp Pulse Resp BP Pulse Ox 03/17/18 18:44 98.2 F 73 20 136/64 98 - Laboratory Lab Statement: Any lab studies that have been ordered have been reviewed, and results considered in the medical decision making process. - CT Brain CT CT Interpretation Completed By: Radiologist - IMPRESSION: No acute intracranial abnormality. The ED physician reviewed this radiology report. Adult Trauma Course/Dx - Course Course Of Treatment: Mr. Shah presented to the emergency department after apparently falling about 7 feet when a stair collapsed. He apparently found his and was confused as to multiple events. He did not remember the fall or antegrade events for couple of hours. By the time I see him he remembers everything but specifically the fall although he remembers grabbing and trying to stop himself. He has a few abrasions on his arm but otherwise does not appear to be injured. CT scan was unremarkable and he was discharged in stable condition. - Diagnoses Provider Diagnoses: Head injury Discharge - Sign-Out/Discharge Documenting (check all that apply): Patient Departure - DC - Discharge Plan Condition: Stable Disposition: HOME Patient Education Materials: Head Injury (ED) Referrals: Dominik Carroll MD [Primary Care Provider] - Additional Instructions: Follow up with your PCP in 1-2 days Return to ED for any new or worsening symptoms - Billing Disposition and Condition Condition: STABLE Disposition: Home - Attestation Statements Document Initiated by Scribe: Yes Documenting Scribe: Kallie Mao Provider For Whom Scribe is Documenting (Include Credential): Dr. Sukhdeep Bennett MD Scribe Attestation: Kallie Cordova , scribed for Dr. Sukhdeep Bennett MD on 03/17/18 at 2203. Scribe Documentation Reviewed: Yes Provider Attestation: The documentation as recorded by the barbaraibeKallie accurately reflects the service I personally performed and the decisions made by me, Dr. Sukhdeep Bennett MD
--- NOTE | 2018-03-17 21:19 | RAD ---
EXAM: CT Head Without Intravenous Contrast EXAM DATE/TIME: 03/17/2018 8:56 PM CLINICAL HISTORY: 67 years old, male; Injury or trauma; Fall TECHNIQUE: Axial computed tomography images of the head/brain without intravenous contrast. All CT scans at this facility use at least one of these dose optimization techniques: automated exposure control; mA and/or kV adjustment per patient size (includes targeted exams where dose is matched to clinical indication); or iterative reconstruction. COMPARISON: No relevant prior studies available. FINDINGS: Brain: The cortical pattern is normal. No significant white matter changes. No hemorrhage or mass effect. Ventricles: Normal. No ventriculomegaly. Bones/joints: Normal. No acute fracture. Sinuses: Normal paranasal sinuses without air-fluid levels. Mastoid air cells: Normal as visualized. No mastoid effusion. Soft tissues: Normal. IMPRESSION: No acute intracranial abnormality. To contact [facility] with a general question: [facility] - [phone] For direct physician to physician contact: Physician Hotline - [phone] [facility] ([facility] Facility ID #[id number])
[2018-03-17 22:10] VITALS: BP 135/77
== END 2018-03-17 22:09 | disposition home or self-care (01) ==
LOC: ED 18:12
DX: S09.90XA Unspecified injury of head, initial encounter (principal); R41.3 Other amnesia; W17.89XA Other fall from one level to another, initial encounter; Y92.9 Unspecified place or not applicable; R51 Headache
CPT/HCPCS: 70450; 99282